=== PATIENT | male | born 1960 | race Caucasian/White ===

== ENCOUNTER 2023-12-03 14:24 | Outpatient (CLI) | payer MEDICARE, SELFPAY ==
--- NOTE | ~2023-12-03 | CT_ITS ---
EXAMINATION: CT abdomen pelvis wo/w con DATE: 12/03/2023 15:18 INDICATION: Gross hematuria TECHNIQUE: Computed tomography (CT) of the abdomen and pelvis was performed without intravenous contr ast. CT of the abdomen and pelvis was then performed with a total of 130 mL Omnipaque-350 intravenous contrast using a double-bolus technique for simultaneous opacification of the renal parenchyma and r enal collecting system. Automated exposure control and iterative reconstruction technique were employ ed. The dose-length product was 3442.21 mGy-cm. COMPARISON: None FINDINGS: Calcified left lower lobe nodule consistent with old granulomatous disease. Heart size is normal. Sma ll amount of atherosclerotic coronary artery calcification. Aortic valve calcification. No pericardia l or pleural effusion. Liver, gallbladder, spleen, pancreas and bilateral adrenal glands are normal. Kidneys enhance symmetrically with 2.3 cm cyst at the lower pole of the right kidney. Bilateral nonob structing nephrolithiasis with a 2-3 mm stone at a lower pole calyx of the left kidney and 1 mm stone at a lower pole calyx of the right kidney. No evident ureteral stones or hydronephrosis. 3.2 x 2.0 x 3.4 cm mass along the left posterior bladder wall positioned just anterior to the left ureteral vesi cular junction which is concerning for bladder cancer. Mild prostatomegaly measuring 4.2 x 3.4 cm. Johnathan wels including the appendix are normal. No free intraperitoneal gas or fluid. No pathologically enlar ged abdominal or pelvic lymphadenopathy. Low-density mass within the right inguinal canal likely a pl ug for a right inguinal hernia repair. Severe lower lumbar and moderate thoracic spondylosis. IMPRESSION: 1. 3.4 cm intraluminal mass along the left posterior bladder wall concerning for primary bladder canc er. Recommend cystoscopy for further evaluation. 2. Bilateral nonobstructing nephrolithiasis. 3. Prostatomegaly. Reviewed, dictated and finalized at location B. IMPRESSION: 1. 3.4 cm intraluminal mass along the left posterior bladder wall concerning fo r primary bladder cancer. Recommend cystoscopy for further evaluation. 2. Bilateral nonobstructing nephrolithiasis. 3. Prostatomegaly.
[2023-12-03 15:02] LABS: Estimated Glomerular Filt Rate > 60
== END 2023-12-03 14:25 | disposition home or self-care (01) ==
LOC: ANHIMG 14:28
PROVIDERS: Visit Provider Urology
DX: R31.0 Gross hematuria (principal); N20.0 Calculus of kidney
CPT/HCPCS: 74178; Q9967

== ENCOUNTER 2023-12-10 08:54 | Outpatient (CLI) | payer MEDICARE, SELFPAY ==
--- NOTE | 2023-12-10 09:01 | ECG_ITS ---
SEE SCANNED COPY FOR CONFIRMED REPORT MTDD
[2023-12-10 09:18] LABS: Basophils Absolute Auto 0.06 K/mm3 (0.00-0.10); Basophils Percent Auto 0.7 % (0.0-1.0); Eosinophils Percent Auto 2.2 % (1.0-6.0); Hemoglobin 14.9 g/dL (14.0-18.0); Immature Granulocyte Absolute 0.06 K/mm3 (0.00-0.00); Immature Granulocyte Percent A 0.7 % (0.0-0.0); Lymphocytes Absolute Auto 1.52 K/mm3 (1.10-4.50); Mean Corpuscular HGB Conc 33.1 g/dL (32-36); Mean Corpuscular Hemoglobin 28.9 pg (27.0-31.0); Mean Corpuscular Volume 87.2 fL (78.0-102.0); Mean Platelet Volume 8.9 fl (8.7-11.0); Monocytes Absolute Auto 0.56 K/mm3 (0.10-0.90); Monocytes Percent Auto 6.3 % (2.0-11.0); Neutrophils Absolute Auto 6.55 K/mm3 (1.70-7.20); Neutrophils Percent Auto 73.1 % (50.0-70.0); Platelet Count Result 204 K/mm3 (150-420); Red Blood Count 5.16 M/mm3 (4.70-6.10); Red Cell Distribution Width 12.8 % (11.6-14.4)
[2023-12-10 09:34] LABS: INR 0.9; Partial Thromboplastin Time 25.8 Sec (23.9-30.70); Prothrombin Time 10.3 Seconds (9.50-12.1)
[2023-12-10 09:37] LABS: Anion Gap 8 mmol/L (4-12); Blood Urea Nitrogen 18 mg/dL (7-18); Calcium 8.9 mg/dL (8.5-10.1); Carbon Dioxide 29 mmol/L (21-32); Chloride 103 mmol/L (98-108); Estimated Glomerular Filt Rate 57; Glucose 206 mg/dL (70-99); Osmolality Calculated 297 mOsm/kg (285-295); Potassium 4.2 mmol/L (3.5-5.1); Sodium 140 mmol/L (136-145)
== END 2023-12-10 08:55 | disposition home or self-care (01) ==
PROVIDERS: PCP Family Medicine; Visit Provider Urology
DX: Z87.891 Personal history of nicotine dependence (principal); N32.89 Other specified disorders of bladder; R31.0 Gross hematuria
CPT/HCPCS: 36415; 80048; 85025; 85610; 85730; 87086; 93005

== ENCOUNTER 2023-12-15 00:54 | Day surgery (SDC) | payer MEDICARE, SELFPAY ==
[2023-12-09 09:37] VITALS: BMI 35.9
--- NOTE | 2023-12-09 09:42 | PC.NURSE ---
Report to the Outpatient Waiting Room, entrance under the green pavilion located off [facility], at time 0830 on date 12/15/23. Planned Procedure Time: 1030. Time changes happen often and if your time is changed the preop area will call you the afternoon before. - You and your visitor will be asked to self-screen and do not enter if you have any COVID symptoms. - A mask is optional within the hospital at this time. Patients may have clear liquids (water, carbonated beverages, clear teas, apple juice) until 3 hours prior to surgery with a maximum of 20 ounces. - No food from midnight until time of surgery Take the following medications with a SIP of water the morning of surgery: NONE DO NOT STOP ANY OF YOUR OTHER PRESCRIPTION MEDICATIONS PRIOR TO SURGERY ?EXCEPT THE FOLLOWING Medications to discontinue per physician: N/A Date to take last dose: N/A Please no make-up, nail uzbek, hairspray, perfume, deodorant, or body powder the day of surgery. No jewelry (including any body piercings) or valuables the day of surgery, leave them at home. Please take a shower or bath the night before, or the morning of, surgery with an antibacterial soap. Wear comfortable, loose fitting clothing. - Jewelry must be removed prior to entering the operating room. Rings and piercings that are not removed may be cut off. - The hospital will not accept responsibility for valuables. - Please leave all valuables, including medications, at home the day of surgery. If you are going home after surgery, a licensed local owner operator truck driver must drive you home. - NO public transportation without another adult if you receive anesthesia. - We recommend that an adult stay with you for 24 hours following discharge. - We also recommend that you do not drive, make important decision, drink alcoholic beverages, or take any drugs that were not prescribed by your health care provider for at least 24 hours after your discharge time. Follow any additional instructions given to you from your surgeon. If you or anyone in your household have experienced Covid symptoms in the past week, please notify your surgeon or the nurse liaison at the phone number below for possible testing. Telephone instructions given to PT Mary Kay OROPEZA and asked if any additional questions and then verbalized understanding. Patient advised to call surgeon office or pre surgery nurse liaison [phone] if any additional questions.
--- NOTE | ~2023-12-15 | XR_ITS ---
EXAMINATION: XR retrograde pyelo w/stent BI DATE: 12/15/2023 10:55 CDT INDICATION: Hematuria TECHNIQUE: Multiple fluoroscopic images from bilateral retrograde pyelogram are submitted for review. 8 fluoroscopic images. 13 seconds of fluoroscopy.] FINDINGS: Renal collecting systems and ureters are normally opacified with contrast without evidence for filling defect or obstruction. No hydronephrosis. IMPRESSION: 1. Unremarkable bilateral retrograde pyelogram.. Correlate with real time procedural findings for de tails. Reviewed, dictated and finalized at location B. IMPRESSION: 1. Unremarkable bilateral retrograde pyelogram.. Correlate with real time proc edural findings for details.
--- NOTE | 2023-12-15 08:30 | WPDHPUPDATE1 ---
History and Physical Update Update Date/Time: 12/15/23 08:30 History and Physical has been reviewed, including an updated exam of the patient. There are NO changes in the patient's condition. Risks, benefits, and alternatives have been discussed and questions answered. Patient agrees to proceed with procedure. Proceed with cysto, possible bilateral retrograde pyelograms, transurethral resection of bladder tumor
[2023-12-15 08:45] VITALS: BP 157/86; PULSE 86; RESP 18; TEMP 36.5; O2SAT 99
[2023-12-15 09:19] LABS: Glucose Point of Care 135 mg/dl (65-105)
--- NOTE | 2023-12-15 09:42 | P.PNAN_ITS ---
Anes - Initial Pre Proc Eval Procedure: Operation Date: 12/15/23 10:30 Proposed Procedures p Trans Urethral Resection Bladder Tumor, - Bolivar Danielson MD s Cystoscopy, Possible Bilateral Retrograde Pyelogram - Bolivar Danielson MD Date/Time: 12/15/23 09:42 Surgeon: Bolivar Danielson MD Pre Op Diagnosis: bladder mass, gross hematuria Patient Data Age: 63 Gender: M Height: 1.88 m Weight: 130 kg Last Vital Signs Temp 97.7 F 12/15/23 08:45 Pulse 86 12/15/23 08:45 Resp 18 12/15/23 08:45 BP 157/86 H 12/15/23 08:45 Pulse Ox 99 12/15/23 08:45 O2 Del Method Room Air 12/15/23 08:45 Allergies Allergy/AdvReac Type Severity Reaction Status Date / Time No Known Allergies Allergy Verified 12/15/23 09:03 Home Medications Medication Instructions Recorded Confirmed Type amitriptyline 100 mg tablet 100 mg PO HS 12/09/23 12/15/23 History clonidine HCl 0.2 mg tablet 0.2 mg PO HS 12/09/23 12/15/23 History trazodone 50 mg tablet 50 mg PO HS 12/09/23 12/15/23 History Laboratory Tests 12/15/23 09:15 POC Capillary Glucose 135 H mg/dl (65-105) Patient hx anesthesia problems: none Family hx anesthesia problems: none Results Review: All pre-operative results and documents have been reviewed as part of the pre- operative evaluation. [facility] Social History Social History Smoking packs per day: 1 Smoking cigarettes per day: 20.0 Years smoked: 20 Smoking pack-years: 20.00 Smoking status: Former smoker Tobacco type: cigarettes Smoking end date: 08/24/13 Alcohol intake: never Substance use: current Substance use type: marijuana Living arrangements: with family Spiritual care concerns: No Anes - Eval Final PreProcedure Day of Procedure 12/15/23 09:42 Patient weight: obese Heart: regular rate and rhythm Lungs: clear to auscultation Airway: Mallampati scale class III Neurological: alert and oriented Last oral intake: >/= 8 hours ASA classification: III Emergent: no Anesthetic plan: proceed Anesthesia type and monitoring: general LMA and standard monitoring Results Review: All pre-operative results and documents have been reviewed as part of the pre- operative evaluation. Informed Consent: The patient's anesthetic plan and its attendant risks and benefits were discussed with the patient/family/POA. Questions were solicited and answers provided to the satisfaction of the patient/family/POA.
[2023-12-15] MEDS: ceFAZolin 3 GM/D5W 100 ML 100 ML IVPB (09:50)
[2023-12-15] MEDS: LIDOCAINE HCL 2% GEL UROJET 10 ML PKG MUCOUS MEM (10:11)
--- NOTE | 2023-12-15 10:44 | P.OP_ITS ---
Procedure Note - Detailed Date of Procedure 12/15/23 Pre-op Diagnosis bladder mass, gross hematuria Post-op Diagnosis Same Procedure Performed Urethral dilation, cystoscopy, transurethral resection large bladder tumor greater than 5 cm area, bilateral retrograde pyelograms complex Dela Cruz catheter placement Surgeon Bolivar Danielson MD Anesthesia General Description of Procedure Patient was taken to the operative suite correctly identified. Once anesthesia was obtained was placed in dorsal lithotomy position and prepped and draped usual sterile fashion. Nineteen Central African scope inserted into the urethra. The bladder is inspected its entirety. There are no urethral strictures but his meatus is a little tight. The prostate has some mild lateral lobe hypertrophy. The bladder itself has the tumor on the left floor extending to the lateral wall. The area with a basic stents about 5 cm. Both ureteral orifices are visualized at this time. A 24 Central African resectoscope sheath would not pass into the meatus. I then dilated the orifice up to 28 Central African. The 24 Central African sheath was then inserted. I resected the tumor down to the base. The base was sent as a separate specimen. Hemostasis was achieved using electrocautery. Bilateral pyelograms were then performed by placing a ureteral catheter into the orifice. There were no filling defects or hydronephrosis noted. Scope was removed. 2% viscous lidocaine was inserted into the urethra. Eighteen Central African [address] was placed with 10 cc in the balloon. Patient was taken recovery stable condition with CBI. That will be weaned to off in recovery room. He will be discharged home with a Dela Cruz catheter and have it removed on or Thursday if his urine is clear. This completes dictation. Please send a copy of op note to my office Estimated Blood Loss 15 Drains Yes Packing No Pathology Yes Complications No immediate complications Condition Stable Disposition PACU
[2023-12-15 10:50] VITALS: BP 124/76; PULSE 93; RESP 16; TEMP 36.6; O2SAT 98
[2023-12-15] MEDS: LACTATED RINGERS 1,000 ML 30 ML IV CONT (10:50)
[2023-12-15] MEDS: fentaNYL CITRATE INJ (*CRX) 100 MCG/2 ML VIAL 25 MCG IV PUSH ×4 (10:57→11:08)
[2023-12-15 11:05] VITALS: BP 125/69; PULSE 88; RESP 12; O2SAT 94
[2023-12-15 11:12] LABS: Glucose Point of Care 144 mg/dl (65-105)
[2023-12-15 11:20] VITALS: BP 126/72; PULSE 73; RESP 12; O2SAT 97
[2023-12-15 11:30] VITALS: BP 113/61; PULSE 85; RESP 16
[2023-12-15] MEDS: oxyCODONE HCL (*CRX) 5 MG TAB IR PO (11:33)
[2023-12-15 12:00] VITALS: BP 125/57; PULSE 73; RESP 16
== END 2023-12-15 12:26 | disposition home or self-care (01) ==
PROVIDERS: PCP Family Medicine; Visit Provider Urology
PROC: 0TBB8ZZ Excision of Bladder, Via Natural or Artificial Opening Endoscopic (ICD-10-PCS; CPT 52240; principal; 2023-12-15 10:30)
PROC: (CPT 52352; 2023-12-15 10:30)
DX: C67.8 Malignant neoplasm of overlapping sites of bladder (principal); Z87.891 Personal history of nicotine dependence; F12.90 Cannabis use, unspecified, uncomplicated; E66.9 Obesity, unspecified; Z68.36 Body mass index [BMI] 36.0-36.9, adult; Z79.899 Other long term (current) drug therapy
CPT/HCPCS: 52240; 74420; 82948; 88305; A9270; C1758; C1769; J0690; J1100; J2250; J2371; J2405; J2704; J3010; J7120

== ENCOUNTER 2023-12-21 18:15 | Emergency (ER) | payer MEDICARE, SELFPAY ==
[2023-12-21 18:15] VITALS: BP 160/97; PULSE 96; RESP 22; TEMP 35.6; O2SAT 100
--- NOTE | 2023-12-21 18:31 | ED.ABDPAIN ---
HPI - Abdominal Pain General Chief Complaint: Abdominal Pain Stated Complaint: constipation following surgery Time Seen by Provider: 12/21/23 18:30 History of Present Illness HPI narrative: Pt says he has not been able to move bowels for several days. Pt says it feels like the stool is right at his rectum and needs to come out and is requesting an enema. Pt had bladder surgery last week by Dr Danielson. Pt is able to void but it is not coming out quickly. Related Data Home Medications Medication Instructions Recorded Confirmed amitriptyline 100 mg tablet 100 mg PO HS 12/09/23 12/21/23 clonidine HCl 0.2 mg tablet 0.2 mg PO HS 12/09/23 12/21/23 trazodone 50 mg tablet 50 mg PO HS 12/09/23 12/21/23 Allergies Allergy/AdvReac Type Severity Reaction Status Date / Time No Known Allergies Allergy Verified 12/15/23 09:03 Review of Systems Review of Systems: All systems reviewed & are unremarkable except as noted in HPI and below PMFSH Social History Social History Smoking packs per day: 1 Smoking cigarettes per day: 20.0 Years smoked: 20 Smoking pack-years: 20.00 Smoking status: Former smoker Tobacco type: cigarettes Smoking end date: 08/24/13 Alcohol intake: never Substance use: current Substance use type: marijuana Living arrangements: with family Spiritual care concerns: No Exam Const: General: no acute distress (uncomfortable sitin on edge of bed) and diaphoretic Orientation/consciousness: patient oriented x3 Limitations: no limitations Resp: Effort & Inspection: normal respiratory effort Auscultation: clear to auscultation bilaterally Cardio: Rate: regular rate Rhythm: regular rhythm GI: GI Palp: Yes Soft to palpation and Yes Tenderness to palpation present (GI) (mild diffuse tenderness) Auscultation: normal bowel sounds Skin: General skin exam: normal color Rashes: no rashes Neuro: General: patient oriented x3, moves all extremities, no meningeal signs and no focal motor deficits Speech: normal speech Extrem: General: normal to inspection and no clubbing, cyanosis or edema Psych: Mental Status: mental status grossly normal Affect: normal affect Attitude: cooperative Course Vital Signs Vital signs: Vital Signs Temperature 96.1 F L 12/21/23 18:15 Pulse Rate 96 12/21/23 18:15 Respiratory Rate 22 H 12/21/23 18:15 Blood Pressure 160/97 H 12/21/23 18:15 Pulse Oximetry 100 12/21/23 18:15 Oxygen Delivery Room Air 12/21/23 18:15 Temperature 96.2 F L 12/21/23 19:57 Pulse Rate 107 H 12/21/23 19:57 Respiratory Rate 20 12/21/23 19:57 Blood Pressure 138/80 12/21/23 19:57 Pulse Oximetry 99 12/21/23 19:57 Oxygen Delivery Room Air 12/21/23 19:57 MDM - Abdominal Pain MDM Narrative Medical decision making narrative: Pt presents with constipation for last two days but really since urologic surgery last week. Will try soap suds enema to see if we can get some relief. Pt had large Bm and felt much better. wants to go home. Discharge Plan Discharge Clinical Impression: Constipation Patient Disposition: Home, Self-Care Condition: Improved Instructions: Antibiotic Form, Constipation (DC) Prescriptions: No Action trazodone 50 mg tablet 50 mg PO HS clonidine HCl 0.2 mg tablet 0.2 mg PO HS amitriptyline 100 mg tablet 100 mg PO HS Follow-up/Referrals: Ricco,MD Alber [Primary Care Provider] -
--- NOTE | 2023-12-21 18:48 | PC.NURSE ---
patient laying on left side. encouraged patient to hold soap suds enema in as long as possible. patient has bedside commode next to him. cleaning wipes and towels given. is at the bedside
--- NOTE | 2023-12-21 18:55 | PC.NURSE ---
patient continues to lay on left side. holding in soap suds enema at this time.
--- NOTE | 2023-12-21 19:02 | PC.NURSE ---
report given to jordan guardado
--- NOTE | 2023-12-21 19:04 | PC.NURSE ---
patient is up to bedside commode. reports that he is having results from the soap suds enema. at his side.
--- NOTE | 2023-12-21 19:27 | PC.NURSE ---
DR. SANZ AT BEDSIDE, STATES PATIENT REPORTS HE IS FEELING MUCH BETTER AFTER SUCCESSFUL BM.
[2023-12-21 19:57] VITALS: BP 138/80; PULSE 107; RESP 20; TEMP 35.7; O2SAT 99
== END 2023-12-21 19:58 | disposition home or self-care (01) ==
PROVIDERS: Emergency Provider Emergency Medicine; PCP Family Medicine
DX: K59.00 Constipation, unspecified (principal); F17.210 Nicotine dependence, cigarettes, uncomplicated
CPT/HCPCS: 99282

== ENCOUNTER 2024-07-06 08:25 | Outpatient (CLI) | payer MEDICARE, SELFPAY ==
[2024-07-06 08:58] LABS: Basophils Absolute Auto 0.03 K/mm3 (0.00-0.10); Basophils Percent Auto 0.4 % (0.0-1.0); Eosinophils Absolute Auto 0.12 K/mm3 (0.02-0.50); Eosinophils Percent Auto 1.6 % (1.0-6.0); Hematocrit 45.7 % (40.0-54.0); Hemoglobin 15.5 g/dL (14.0-18.0); Immature Granulocyte Absolute 0.04 K/mm3 (0.00-0.00); Immature Granulocyte Percent A 0.5 % (0.0-0.0); Lymphocytes Absolute Auto 1.66 K/mm3 (1.10-4.50); Lymphocytes Percent Auto 22.6 % (18.0-42.0); Mean Corpuscular HGB Conc 33.9 g/dL (32-36); Mean Corpuscular Hemoglobin 29.5 pg (27.0-31.0); Mean Corpuscular Volume 86.9 fL (78.0-102.0); Monocytes Absolute Auto 0.56 K/mm3 (0.10-0.90); Monocytes Percent Auto 7.6 % (2.0-11.0); Neutrophils Absolute Auto 4.93 K/mm3 (1.70-7.20); Neutrophils Percent Auto 67.3 % (50.0-70.0); Platelet Count Result 200 K/mm3 (150-420); Red Blood Count 5.26 M/mm3 (4.70-6.10); Red Cell Distribution Width 12.6 % (11.6-14.4); White Blood Count 7.3 K/mm3 (4.8-10.8)
[2024-07-06 09:13] LABS: Partial Thromboplastin Time 26.4 Sec (23.9-30.70); Prothrombin Time 10.5 Seconds (9.50-12.1)
[2024-07-06 09:46] LABS: Anion Gap 9 mmol/L (4-12); Blood Urea Nitrogen 17 mg/dL (7-18); Calcium 9.9 mg/dL (8.5-10.1); Carbon Dioxide 28 mmol/L (21-32); Chloride 101 mmol/L (98-108); Estimated Glomerular Filt Rate > 60; Glucose 134 mg/dL (70-99); Osmolality Calculated 289 mOsm/kg (285-295); Potassium 4.5 mmol/L (3.5-5.1); Sodium 138 mmol/L (136-145)
== END 2024-07-06 08:26 | disposition home or self-care (01) ==
LOC: CHSLAB 08:26
PROVIDERS: PCP Family Medicine; Visit Provider Urology
DX: D49.4 Neoplasm of unspecified behavior of bladder (principal); R10.9 Unspecified abdominal pain
CPT/HCPCS: 36415; 80048; 85025; 85610; 85730

== ENCOUNTER 2024-07-12 00:29 | Day surgery (SDC) | payer MEDICARE, SELFPAY ==
[2024-07-05 15:29] VITALS: BMI 37.3
--- NOTE | 2024-07-05 15:42 | PC.NURSE ---
Report to the Outpatient Waiting Room, entrance under the green pavilion located off [facility], at time __6:45AM on date ___07/12/24____. Planned Procedure Time: ___8:45AM .? Time changes happen often and if your time is changed the preop area will call you the afternoon before. - You and your visitor will be asked to self-screen and do not enter if you have any COVID symptoms. Please call surgeon if you need to reschedule. - A mask is optional within the hospital at this time. Patients may have clear liquids (water, carbonated beverages, clear teas, apple juice) until 3 hours prior to surgery with a maximum of 20 ounces. - No food from midnight until time of surgery and no smoking - Infants may have breast milk until 4 hours before surgery, formula 6 hours prior to surgery. - Children will be allowed to drink immediately following surgery.? If applicable, please bring a bottle or sippy cup to assist with drinking. Juice, water, soda, and popsicles are readily available.? For infants on formula, please bring formula the day of surgery.? Pacifiers are allowed. Take only the following medications with a SIP of water on the morning of surgery: NONE DO NOT STOP ANY OF YOUR OTHER PRESCRIPTION MEDICATIONS PRIOR TO SURGERY EXCEPT THE FOLLOWING Medications to discontinue per physician NONE Date to take last dose Please no make-up, nail south korean, hairspray, perfume, deodorant, or body powder the day of surgery.? No jewelry (including any body piercings) or valuables the day of surgery, leave them at home.? Please take a shower or bath the night before, or the morning of, surgery with an antibacterial soap.? Wear comfortable, loose fitting clothing.? Children are encouraged to wear pajamas. - Jewelry must be removed prior to entering the operating room.? Rings and piercings that are not removed may be cut off. - The hospital will not accept responsibility for valuables.? - Please leave all valuables, including medications, at home the day of surgery. If you are going home after surgery, a licensed transfer driver must drive you home.? - NO public transportation without another adult if you receive anesthesia. - We recommend that an adult stay with you for 24 hours following discharge. - We also recommend that you do not drive, make important decision, drink alcoholic beverages, or take any drugs that were not prescribed by your health care provider for at least 24 hours after your discharge time. For Pediatric surgeries, we recommend two adults accompany the child home. Follow any additional instructions given to you from your surgeon. Telephone instructions given to ___PATIENT and asked if any additional questions and then verbalized understanding. Patient advised to call surgeon office or pre surgery nurse liaison [phone] if any additional questions.
[2024-07-12] VITALS (7 sets, daily range): BP systolic 105–146; BP diastolic 67–83; PULSE 69–83; RESP 14–20; TEMP 36.1–36.6; O2SAT 97–100
--- NOTE | 2024-07-12 07:34 | WPDHPUPDATE1 ---
History and Physical Update Update Date/Time: 07/12/24 07:34 History and Physical has been reviewed, including an updated exam of the patient. There are NO changes in the patient's condition. Risks, benefits, and alternatives have been discussed and questions answered. Patient agrees to proceed with procedure.
[2024-07-12] MEDS: LACTATED RINGERS 1,000 ML 30 ML IV CONT (07:45)
--- NOTE | 2024-07-12 08:24 | WPDANESEPPF ---
Anes - Initial Pre Proc Eval Procedure: Operation Date: 07/12/24 08:45 Proposed Procedures p Cystoscopy, Possible Transurethral Resection Bladder Tumor - Bolivar Danielson MD Date/Time: 07/12/24 08:24 Surgeon: Bolivar Danielson MD Pre Op Diagnosis: bladder cancer Patient Data Age: 64 Gender: M Height: 1.88 m Weight: 132 kg Allergies Allergy/AdvReac Type Severity Reaction Status Date / Time No Known Allergies Allergy Verified 07/12/24 07:47 Home Medications Medication Instructions Recorded Confirmed Type amitriptyline 100 mg tablet 100 mg PO HS 12/09/23 07/12/24 History clonidine HCl 0.2 mg tablet 0.2 mg PO HS 12/09/23 07/12/24 History trazodone 50 mg tablet 50 mg PO HS 12/09/23 07/12/24 History atorvastatin 20 mg tablet 20 mg PO QAM 07/05/24 07/12/24 History Patient hx anesthesia problems: none Family hx anesthesia problems: none Results Review: All pre-operative results and documents have been reviewed as part of the pre-operative evaluation. PENDING SALE TO [facility] Social History Social History Smoking packs per day: 1 Smoking cigarettes per day: 20.0 Years smoked: 25 Smoking pack-years: 25.00 Smoking status: Former smoker Tobacco type: cigarettes Smoking end date: 02/21/14 Alcohol intake: never Substance use: current Substance use type: marijuana Living arrangements: with family Additional living arrangements comments: Spiritual care concerns: No Anes - Eval Final PreProcedure Day of Procedure 07/12/24 08:24 Patient weight: obese Heart: regular rate and rhythm Lungs: clear to auscultation Airway: Mallampati scale and special considerations (Missing several upper teeth, one broken, none loose per pt. ) Neurological: alert and oriented Last oral intake: >/= 8 hours ASA classification: III Emergent: no Anesthetic plan: proceed Anesthesia type and monitoring: general LMA and standard monitoring Results Review: All pre-operative results and documents have been reviewed as part of the pre-operative evaluation. HTN, hyperlipidemia, pt denies BRENDA. Informed Consent: The patient's anesthetic plan and its attendant risks and benefits were discussed with the patient/family/POA. Questions were solicited and answers provided to the satisfaction of the patient/family/POA.
[2024-07-12] MEDS: ceFAZolin 2 GM/D5W 50 ML 2 GM/50 ML BAG IVPB (08:29)
[2024-07-12] MEDS: LIDOCAINE HCL 2% GEL UROJET 10 ML PKG MUCOUS MEM (08:29)
[2024-07-12] MEDS: ceFAZolin SODIUM 1 GM VIAL IV PUSH (08:45)
--- NOTE | 2024-07-12 08:52 | W.PM.PROC2 ---
Procedure Note - Detailed Date of Procedure 07/12/24 Pre-op Diagnosis bladder cancer Post-op Diagnosis Same (No recurrence) Procedure Performed Cystoscopy Surgeon Bolivar Danielson MD Anesthesia General Description of Procedure Patient was taken the operative suite correctly identified. Once anesthesia was obtained was placed in dorsal lithotomy position prepped draped usual sterile fashion. Nineteen Brazilian scope was inserted in the bladder on direct vision. There were no urethral strictures. Prostate nonobstructive. Upon entering the bladder the bladder was inspected in its entirety. Prior resected site along the left lateral wall was visualized and healed nicely. The entire bladder was inspected with a 30 degree lens as well as a 70 degree lens. No tumors were noted. Bladder was drained. 2% viscous lidocaine was inserted into the urethra. Patient is taken recovery stable condition. Patient is very anxious will not allow was to do a cystoscopy in the office. Will stretch him out to a 6 month cysto in the OR. This completes dictation. Please send a copy of op note to my office Drains No Packing No Pathology None sent Complications No immediate complications Condition Stable Disposition PACU
== END 2024-07-12 10:05 | disposition home or self-care (01) ==
PROVIDERS: PCP Family Medicine; Visit Provider Urology
PROC: 0TBB8ZZ Excision of Bladder, Via Natural or Artificial Opening Endoscopic (ICD-10-PCS; CPT 52000; principal; 2024-07-12 08:45)
DX: Z08 Encounter for follow-up examination after completed treatment for malignant neoplasm (principal); E66.9 Obesity, unspecified; Z68.38 Body mass index [BMI] 38.0-38.9, adult; Z98.890 Other specified postprocedural states; Z98.1 Arthrodesis status; Z87.891 Personal history of nicotine dependence; Z85.51 Personal history of malignant neoplasm of bladder
CPT/HCPCS: 52000; J0690; J1100; J2003; J2250; J2405; J2704; J3010; J7120

== ENCOUNTER 2024-10-03 08:36 | Observation (INO) | payer MEDICARE, SELFPAY ==
[2024-10-03] VITALS (49 sets, daily range): BP systolic 115–137; BP diastolic 59–82; PULSE 93–104; RESP 18–20; TEMP 35.6–36.2; O2SAT 91–100
--- NOTE | ~2024-10-03 | XR_ITS ---
Supine and upright views of the abdomen Clinical history: Possible small bowel follow-through COMPARISON: 10/04/2024 Findings: Oral contrast is present in large bowel. Multiple prominently distended small bowel loops a re present. No definite free air seen. No abnormal mass lesion or calcification is seen. Osseous stru ctures are intact. Impression: Small bowel obstruction versus adynamic ileus. Oral contrast is within nondistended large bowel. Reviewed, dictated and finalized at location M. MOBILE SERVICE STATION MANAGER Impression: Small bowel obstruction versus adynamic ileus. Oral contrast is within nondiste nded large bowel.
--- NOTE | ~2024-10-03 | XR_ITS ---
EXAMINATION: XR abdomen/kub 1V DATE: 10/04/2024 15:53 INDICATION: Adynamic ileus. TECHNIQUE: A supine view of the abdomen on 5 radiographs was obtained. COMPARISON: CT abdomen and pelvis 10/03/2024 FINDINGS: There are dilated loops of small bowel. There is oral contrast in the colon, which is tanika l in caliber. IMPRESSION: 1. Dilated small bowel, consistent with partial small bowel obstruction versus adynamic ileus. Reviewed, dictated and finalized at location A. SPLANT IMMUNOLOGIST
--- NOTE | ~2024-10-03 | XR_ITS ---
EXAMINATION: XR small bowel follow through DATE: 10/04/2024 11:00 INDICATION: Improving partial bowel obstruction TECHNIQUE: Test Preparation Tutor radiograph(s) of the abdomen was/were obtained. Oral contrast was administered, and sequential radiographs of the abdomen were obtained until oral contrast was noted to be in the proxi mal colon. COMPARISON: None. FINDINGS: Transit time from the stomach to proximal colon was approximately 3 hours. Multiple mildly dilated lo ops of small bowel with normal mucosal fold pattern throughout. The visualized contrast opacified por tion of the proximal colon appears normal.. IMPRESSION: 1. Multiple mildly dilated loops of small bowel but with contrast progressing into the colon within 3 hours consistent with partial small bowel obstruction versus ileus. Reviewed, dictated and finalized at location A. PAN OPERATOR IMPRESSION: 1. Multiple mildly dilated loops of small bowel but with contrast progressing i nto the colon within 3 hours consistent with partial small bowel obstruction ve rsus ileus.
--- NOTE | ~2024-10-03 | CT_ITS ---
Non-contrast CT scan of the Abdomen and Pelvis Clinical indication: Epigastric pain Technique: 2.5 mm axial scans were obtained through the abdomen and pelvis without intravenous or or al contrast. Dose reduction technique was used on this scan by utilizing automated exposure control a nd iterative reconstruction technique. The dose-length product (DLP) was 1563.92 mGy-cm. COMPARISON: 12/03/2023 Findings: Images through the lung bases reveal no abnormalities. 3 mm nonobstructing left renal stone present. No right renal stone. No ureteral stone or hydronephros is on either side. The liver, spleen, pancreas, gallbladder, and adrenals appear normal. There are atherosclerotic calci fications of the aorta. There are multiple dilated proximal small bowel, with relative transition point in the posterior mid abdomen (axial image 123), compatible with early/partial small bowel obstruction. Images through the pelvis were performed. There is no evidence of ascites or lymphadenopathy. Urinary bladder unremarkable. No pelvic mass seen. Impression: Findings compatible with early/partial small bowel obstruction, as detailed above. 3 mm nonobstructing left renal stone. Reviewed, dictated and finalized at location M. L SPRAYER MACHINED PARTS Impression: Findings compatible with early/partial small bowel obstruction, as detailed abo ve. 3 mm nonobstructing left renal stone.
--- NOTE | 2024-10-03 08:37 | ED_ITS ---
HPI - General Adult General Chief complaint: Upper Respiratory Infection Stated complaint: uri Time Seen by Provider: 10/03/24 08:37 Source: patient Mode of arrival: ambulatory Limitations: no limitations History of Present Illness HPI narrative: 64 years old white male came to the ED by private car complaining of dry cough for the last 6 days got worse in the last 2 days, Epigastric pain with coughing. He denies any fever, chills, nausea, vomiting, diarrhea, constipation. Patient been taking Tylenol, ibuprofen without improvement, history of diabetes, he does not smoke or drink or use drugs. He denies history of abdominal surgery. Related Data Home Medications ?Medication ?Instructions ?Recorded ?Confirmed ?Last Taken ?Type amitriptyline 100 mg tablet 100 mg PO HS 12/09/23 07/12/24 07/11/24 History clonidine HCl 0.2 mg tablet 0.2 mg PO HS 12/09/23 07/12/24 07/11/24 History trazodone 50 mg tablet 50 mg PO HS 12/09/23 07/12/24 07/11/24 History atorvastatin 20 mg tablet 20 mg PO QA 07/05/24 07/12/24 07/11/24 History Allergies Allergy/AdvReac Type Severity Reaction Status Date / Time No Known Allergies Allergy Verified 10/03/24 08:47 Review of Systems 2 Review of Systems: All systems reviewed & are unremarkable except as noted in HPI and below PMFSH Social History Social History Smoking packs per day: 1 Smoking cigarettes per day: 20.0 Years smoked: 25 Smoking pack-years: 25.00 Smoking status: Former smoker Tobacco type: cigarettes Smoking end date: 02/21/14 Alcohol intake: never Substance use: current Substance use type: marijuana Living arrangements: with family Additional living arrangements comments: Spiritual care concerns: No Exam 2 Narrative: General appearance: Well-developed, well-nourished Skin: Normal color Head: Normocephalic, nontraumatic Eyes: Clear conjunctiva ENT: Oropharynx normal, ears normal, nose normal Neck: Supple, nontender Chest and respiratory: Airway patent, no respiratory distress, no accessory muscle use Heart: Regular rate/rhythm Abdomen: Soft, Epigastric tenderness, no organomegaly, quiet bowel sounds Vascular: Normal peripheral pulses, normal capillary refill. Musculoskeletal: Normal range of motion, nontender back Neurologic: Alert and oriented ?3, HVAC TECHNICIAN RESIDENTIAL is normal as tested, no gross motor deficit Course Consultations Consultation #1: Dr. Lora at shift change Date: 10/03/24 Time: 19:00 Vital Signs Vital signs: Vital Signs Temperature 36.2 C L 10/03/24 08:43 Pulse Rate 104 H 10/03/24 08:43 Respiratory Rate 20 10/03/24 08:43 Blood Pressure 130/70 10/03/24 08:43 Pulse Oximetry 97 10/03/24 08:43 Oxygen Delivery Room Air 10/03/24 08:43 Temperature 36.2 C L 10/03/24 08:43 Pulse Rate 97 10/03/24 15:15 Respiratory Rate 20 10/03/24 08:43 Blood Pressure 137/79 10/03/24 15:01 Pulse Oximetry 93 10/03/24 15:30 Oxygen Delivery Room Air 10/03/24 15:01 Medical Decision Making [facility] Narrative Medical decision making narrative: patient presents with dry cough and epigastric pain Vital signs showing pulse of 104 otherwise within normal limit Physical examination showing large abdomen, tender epigastric area, Differential diagnosis include upper respiratory viral infection, pneumonia, coronary artery disease, pancreatitis, cholecystitis, constipation, diverticulitis, colitis, urinary tract infection. Blood workup today includes CBC, CMP, lipase, troponin showed no significant abnormalities Respiratory panel came back positive for influenza A Urinalysis showed no evidence of infection CT abdomen and pelvis without contrast showed partial small-bowel obstruction EKG on arrival to the ED showed supraventricular rhythm at 91 beats per minute, right axis deviation, right bundle-branch block, anterior myocardial infarction of indeterminate age, abnormal EKG Diagnosis influenza, partial small-bowel obstruction Disposition on the waiting list ,[facility] Differential Diagnosis Differential Diagnosis: as above Vital Signs Vital Signs: Vital Signs Temperature 36.2 C L 10/03/24 08:43 Pulse Rate 104 H 10/03/24 08:43 Respiratory Rate 20 10/03/24 08:43 Blood Pressure 130/70 10/03/24 08:43 Pulse Oximetry 97 10/03/24 08:43 Oxygen Delivery Room Air 10/03/24 08:43 Temperature 36.2 C L 10/03/24 08:43 Pulse Rate 97 10/03/24 15:15 Respiratory Rate 20 10/03/24 08:43 Blood Pressure 137/79 10/03/24 15:01 Pulse Oximetry 93 10/03/24 15:30 Oxygen Delivery Room Air 10/03/24 15:01 Lab Data 10/03/24 09:12 10/03/24 09:12 Labs: Lab Results 10/03/24 10/03/24 10/03/24 Range/Units 08:49 09:12 11:13 WBC 7.3 (4.8-10.8) K/mm3 RBC 5.11 (4.70-6.10) M/mm3 Hgb 14.6 (14.0-18.0) g/dL Hct 45.1 (40.0-54.0) % MCV 88.3 (78.0-102.0) fL MCH 28.6 (27.0-31.0) pg MCHC 32.4 (32-36) g/dL RDW 13.1 (11.6-14.4) % Plt Count 182 (150-420) K/mm3 MPV 9.0 (8.7-11.0) fl Immature Gran % (Auto) 0.4 H (0.0-0.0) % Neut % (Auto) 83.2 H (50.0-70.0) % Lymph % (Auto) 6.3 L (18.0-42.0) % [place] % (Auto) 8.4 (2.0-11.0) % Eos % (Auto) 1.6 (1.0-6.0) % Baso % (Auto) 0.1 (0.0-1.0) % Lymph # (Auto) 0.46 L (1.10-4.50) K/mm3 [place] # (Auto) 0.61 (0.10-0.90) K/mm3 Eos # (Auto) 0.12 (0.02-0.50) K/mm3 Baso # (Auto) 0.01 (0.00-0.10) K/mm3 Abs Immat Gran (auto) 0.03 H (0.00-0.00) K/mm3 Absolute Neuts (auto) 6.07 (1.70-7.20) K/mm3 Absolute Nucleated RBC 0.00 (0.00-0.00) K/mm3 Nucleated RBC % 0.0 (0-0.0) % Sodium 132 L (136-145) mmol/L Potassium 3.6 (3.5-5.1) mmol/L Chloride 97 L (98-108) mmol/L Carbon Dioxide 27 (21-32) mmol/L Anion Gap 8 (4-12) mmol/L BUN 15 (7-18) mg/dL Creatinine 1.20 (0.70-1.30) mg/dL Estim Creat Clear Calc 83 ml/min Estimated GFR > 60 (59 - ) Glucose 180 H (70-99) mg/dL Calculated Osmolality 279 L (285-295) mOsm/kg Lactic Acid 1.7 (0.4-2.0) mmol/L Calcium 8.3 L (8.5-10.1) mg/dL Total Bilirubin 0.6 (0.00-1.00) mg/dL AST 14 L (15-37) U/L ALT 33 (16-63) U/L Alkaline Phosphatase 65 (46-116) U/L Troponin I 6.2 (0.00-60.4) ng/L Total Protein 6.6 (6.4-8.2) g/dL Albumin 3.4 (3.4-5.0) g/dL Lipase 18 (16-77) U/L Urine Color Yellow (Yellow) Urine Appearance Clear (Clear) Urine pH 5.5 (5.0-8.0) Ur Specific [place] 1.025 H (1.010-1.020) Urine Protein Trace H (Negative) Urine Glucose (UA) Trace H (Negative) Urine Ketones 1+ H (Negative) Ur Blood (Man) Negative (Negative) Urine Nitrate Negative (Negative) Urine Bilirubin Negative (Negative) Urine Urobilinogen 0.2 (0.2-1.0) mg/dL Leukocyte Esterase Rfl Negative (Negative) DAPHNE/UL Urine RBC None seen (0-2) /hpf Urine WBC None seen (0-3) /hpf Ur Squamous Epith Cells Few (Few) /hpf Urine Bacteria 1+ H (None) /hpf Urine Mucus Few H /lpf Influenza A (RT-PCR) Positive A (Negative) Influenza B (RT-PCR) Negative (Negative) RSV (RT-PCR) Negative (Negative) SARS-CoV-2 RNA (RT-PCR) Negative (Negative) Imaging Data Radiologist's impression: Impressions Abdomen/Pelvis CT 10/03/24 09:47 Impression: Findings compatible with early/partial small bowel obstruction, as detailed above. 3 mm nonobstructing left renal stone. ECG Data EKG #1: Attestation: I personally reviewed and interpreted this ECG as follows: Interpretation: supraventricular rhythm at 91 beats per minute, right axis deviation, incomplete right bundle-branch block, anterior infarction, age indeterminate, borderline ST T-wave abnormality, abnormal EKG Critical Care Time Critical Care Time Critical Care Time: Yes Total Critical Care Time: 3 Discharge Plan Discharge Clinical Impression: Influenza, Partial small bowel obstruction Patient Disposition: Acute Care [facility] Condition: Stable Additional Instructions: Patient Language: Kazakh Prescriptions: No Action trazodone 50 mg tablet 50 mg PO HS clonidine HCl 0.2 mg tablet 0.2 mg PO HS amitriptyline 100 mg tablet 100 mg PO HS atorvastatin 20 mg tablet 20 mg PO QAM Follow-up/Referrals: Ricco,MD Alber [Primary Care Provider] -
--- OUTSIDE RECORDS SUMMARY | 2024-10-03 08:45 | XMS_ITS | Encounter Summary ---
Author Organization [facility] Address [facility] [place] [address] Care Team Providers Care Vegetables Cook Name Role Phone Alber Chacko MD Primary Care Provider Encounter Details Date Type Department Care Team (Late st Contact Info) Description 01/29/2019 Abstract SFL CONVERSION [address] [place] [address] , Generic Conversion, Social History Tobacco Use Types Packs/Day Years Used Date Smoking Tobacco: Never Assessed Sex and Gender Information Value Date Recorded Sex Assigned at Not on file Legal Sex Male 7:58 PM CDT Gender Identity Not on file Sexual Orientation Not on file documented as of this encounter Plan of Treatment Not on file documented as of this encounter Visit Diagnoses Not on filedocumented in this encounter Care Teams Vegetables Cook Relationship Specialty Start Date End Date Alber Chacko MD [address] [place] [id number] PCP - General FAMILY PRACTICE 11/04/23 documented as of this encounter
--- OUTSIDE RECORDS SUMMARY | 2024-10-03 08:45 | XMS_ITS | Clinical Summary ---
Author Organization [facility] Address [facility] [place] [address] Care Team Providers Care Release Specialist Name Role Phone Alber Chacko MD Primary Care Provider Social History Tobacco Use Types Packs/Day Years Used Date Smoking Tobacco: Never Assessed Sex and Gender Information Value Date Recorded Sex Assigned at Not on file Legal Sex Male 7:58 PM CDT Gender Identity Not on file Sexual Orientation Not on file Last Filed Vital Signs Vital Sign Reading Time Taken Comments Blood Pressure - - Pulse - - Temperature - - Respiratory Rate - - Oxygen Saturation - - Inhaled Oxygen Concentration - - Weight 104.3 kg (230 lb) 12/24/2018 8:57 AM CDT Height 190.5 cm (6' 3 ) 12/24/2018 8:57 AM CDT Body Mass Index 28.75 12/24/2018 8:57 AM CDT Plan of Treatment Health Maintenance Due Date Last Done Comments Colorectal Cancer Screening Colonoscopy (10 Years) 1962 Annual Physical 1965 Hepatitis C 02/12/1980 DTaP, Tdap and Td Vaccines ( 1 - Tdap) 1981 Zoster Vaccines (1 of 2) 02/12/2012 COVID-19 Vaccine (3 - 2023-2 5 season) 2024 01/29/2021, 01/08/2021 Influenza Adult (#1) 2024 12/20/2018, 05/27/2017 RSV Immunization or 60+ Years (1 - 1-dose 75+ series) 2037 Meningococcal B Vaccine Aged Out No l onger eligible based on patient's age to complete this topic Meningococcal Vaccine Aged Out No bharat adria eligible based on patient's age to complete this topic Pneumococcal Vaccine: Pediatrics (0 to 5 Years) and At-Risk Patients (6 to 64 Years) Aged Out No longer eligible b ased on patient's age to complete this topic RSV Immunizations Under 20 Months Aged Out No longer eligible b ased on patient's age to complete this topic Insurance MEDICARE Care Teams Release Specialist Relationship Specialty Start Date End Date Alber Chacko MD [address] [place] [phone] PCP - General FAMILY PRACTICE 11/04/23
--- NOTE | 2024-10-03 08:53 | ECG_ITS ---
Test Date: 2024-10-03 09:19:01 Measurements Intervals [place] Rate: 91 P: 0 CA: 0 QRS: 114 QRSD: 110 T: -87 QT: 359 QTc: 442 Interpretive Statements SUPRAVENTRICULAR RHYTHM RIGHT AXIS DEVIATION INCOMPLETE RIGHT BUNDLE BRANCH BLOCK CONSIDER ANTERIOR INFARCT, AGE INDETERMINATE BORDERLINE ST-T WAVE ABNORMALITY- INF/LAT LEADS BASELINE ARTIFACT- I, II, III, AVR, AVL, AVF, V1 ABNORMAL ECG No previous ECG available for comparison Electronically Signed On 10-03-2024 09:48:52 DELICATESSEN STORE MANAGER by Rakesh Sorenson D.O.
[2024-10-03] MEDS: SODIUM CHLORIDE 0.9% IV 1,000 ML 999 ML IV CONT (09:01)
[2024-10-03 09:20] LABS: Basophils Absolute Auto 0.01 K/mm3 (0.00-0.10); Basophils Percent Auto 0.1 % (0.0-1.0); Eosinophils Absolute Auto 0.12 K/mm3 (0.02-0.50); Eosinophils Percent Auto 1.6 % (1.0-6.0); Hematocrit 45.1 % (40.0-54.0); Hemoglobin 14.6 g/dL (14.0-18.0); Immature Granulocyte Absolute 0.03 K/mm3 (0.00-0.00); Immature Granulocyte Percent A 0.4 % (0.0-0.0); Lymphocytes Absolute Auto 0.46 K/mm3 (1.10-4.50); Lymphocytes Percent Auto 6.3 % (18.0-42.0); Mean Corpuscular HGB Conc 32.4 g/dL (32-36); Mean Corpuscular Hemoglobin 28.6 pg (27.0-31.0); Mean Corpuscular Volume 88.3 fL (78.0-102.0); Monocytes Absolute Auto 0.61 K/mm3 (0.10-0.90); Monocytes Percent Auto 8.4 % (2.0-11.0); Neutrophils Absolute Auto 6.07 K/mm3 (1.70-7.20); Neutrophils Percent Auto 83.2 % (50.0-70.0); Platelet Count Result 182 K/mm3 (150-420); Red Blood Count 5.11 M/mm3 (4.70-6.10); Red Cell Distribution Width 13.1 % (11.6-14.4); White Blood Count 7.3 K/mm3 (4.8-10.8)
[2024-10-03 09:30] LABS: SARS-CoV-2 RNA PCR Negative (Negative)
--- OUTSIDE RECORDS SUMMARY | 2024-10-03 09:30 | XMS_ITS | Clinical Summary ---
Author Organization [facility] Address [facility] [place] [address] Care Team Providers Care Fusion Juncture Grinder Name Role Phone Alber Chacko MD Primary Care Provider [phone] Social History Tobacco Use Types Packs/Day Years [...] complete this topic Insurance MEDICARE Care Teams Fusion Juncture Grinder Relationship Specialty Start Date End Date Alber Chacko MD [address] [place] [phone] PCP - General FAMILY PRACTICE 11/04/23
--- OUTSIDE RECORDS SUMMARY | 2024-10-03 09:30 | XMS_ITS | Encounter Summary ---
Author Organization [facility] Address [facility] [place] [address] Care Team Providers Care Business Analytics Analyst Name Role Phone Alber Chacko MD Primary Care Provider Encounter Details Date Type Department Care Team (Late st Contact Info) Description 01/29/2019 Abstract SFL CONVERSION [address] [place] [address] , Generic Conversion, Social History Tobacco Use [...] on filedocumented in this encounter Care Teams Business Analytics Analyst Relationship Specialty Start Date End Date Alber Chacko MD [address] [place] [phone] PCP - General FAMILY PRACTICE 11/04/23 documented as of this encounter
[2024-10-03 09:41] LABS: Lactic Acid Reflex 1.7 mmol/L (0.4-2.0)
[2024-10-03 09:47] LABS: Influenza A QL RT-PCR Positive (Negative); Influenza B QL RT-PCR Negative (Negative); RSV RNA, RT-PCR Negative (Negative)
[2024-10-03 09:53] LABS: Alanine Aminotransferase 33 U/L (16-63); Albumin Level 3.4 g/dL (3.4-5.0); Alkaline Phosphatase 65 U/L (46-116); Anion Gap 8 mmol/L (4-12); Aspartate Amino Transferase 14 U/L (15-37); Bilirubin,Total 0.6 mg/dL (0.00-1.00); Blood Urea Nitrogen 15 mg/dL (7-18); Calcium 8.3 mg/dL (8.5-10.1); Carbon Dioxide 27 mmol/L (21-32); Chloride 97 mmol/L (98-108); Estimated CRCL calculation 83 ml/min; Estimated Glomerular Filt Rate > 60; Glucose 180 mg/dL (70-99); Lipase 18 U/L (16-77); Osmolality Calculated 279 mOsm/kg (285-295); Potassium 3.6 mmol/L (3.5-5.1); Sodium 132 mmol/L (136-145); Total Protein 6.6 g/dL (6.4-8.2); Troponin I 6.2 ng/L (0.00-60.4)
[2024-10-03] MEDS: ONDANSETRON INJ 4 MG/2 ML VIAL (10:52)
[2024-10-03 11:20] LABS: Add Urine Microscopic? YES; Appearance Urine Clear (Clear); Bilirubin Urine Negative (Negative); Blood Urine Negative (Negative); Color Urine Yellow (Yellow); Glucose Urine UA Trace (Negative); Ketones Urine 1+ (Negative); Leukocyte Esterase Ur Negative LEU/UL (Negative); Nitrate Urine Negative (Negative); Protein Urine Trace (Negative); Specific Grav Ur 1.025 (1.010-1.020); Urobilinogen Urine 0.2 mg/dL (0.2-1.0); pH Urine 5.5 (5.0-8.0)
[2024-10-03 11:25] LABS: Bacteria Urine 1+ /hpf; Mucus Urine Few /lpf; RBC Urine None seen /hpf (0-2); Squamous Epithelial Cell Urine Few /hpf (Few); WBC Urine None seen /hpf (0-3)
--- NOTE | 2024-10-03 13:03 | PC.NURSE ---
1300 pt placed on hospital bed for comfort pt awaiting a bed at [facility]
[2024-10-03] MEDS: LORazepam INJ (*CRX) 2 MG/ML VIAL 1 MG IV PUSH ×2 (14:01→19:34)
[2024-10-03] MEDS: SODIUM CHLORIDE 0.9% IV 1,000 ML 125 ML IV CONT (17:41)
--- NOTE | 2024-10-03 19:10 | PC.NURSE ---
patient report received from CLAUDE Camejo. Patient sitting upright on hospital bed with VSS, ivf infusing. patient given ice chips per request and states he is anxious. patient says medication given earlier for anxiety was helpful. RN to request second dose so patient can rest.
--- NOTE | 2024-10-03 19:40 | PC.NURSE ---
patient medicated and update provided. see MAR. patient denies further needs, awake and alert resting on hospital bed with call light within reach.
--- NOTE | 2024-10-03 21:19 | PC.NURSE ---
RN phoned patient spouse Bouchra [phone] (per pt request) to provide update that patient will be awaiting bed at [facility] in ED this evening as no single room beds available as patient needs for his Flu A + diagnosis. Bouchra states she will be up in the morning.
[2024-10-03 21:22] LABS: Glucose Point of Care 164 mg/dl (65-105)
--- NOTE | 2024-10-03 22:15 | PC.NURSE ---
patient given more pillows by outer diameter technician Melissa at this time.
--- NOTE | 2024-10-03 22:49 | PC.NURSE ---
patient resting on bed, denies needs. ivf infusing. vss. call light within reach.
--- NOTE | 2024-10-03 23:39 | PC.NURSE ---
patient given ice chips per technology auditor.
[2024-10-04] VITALS (74 sets, daily range): BP systolic 117–176; BP diastolic 74–99; PULSE 88–107; RESP 16–18; TEMP 35.8–36.8; O2SAT 82–100; BMI 38.6
--- NOTE | 2024-10-04 00:17 | PC.NURSE ---
resting on bed in ED 3. call light within reach, RN monitoring.
--- NOTE | 2024-10-04 01:16 | PC.NURSE ---
patient sitting on bed. call light within reach. denies needs.
[2024-10-04] MEDS: SODIUM CHLORIDE 0.9% IV 1,000 ML 125 ML IV CONT ×3 (02:03→22:04)
--- NOTE | 2024-10-04 02:10 | PC.NURSE ---
new bag of IVF hung and patient sitting upright on side of hospital bed, watching tv. patient reports bed is uncomforable for his back and he is unable to sleep. patient offered warm blanket but does not wish for one at this time. thermostat adjusted per patient request. call light within reach. patient given ice chips.
--- NOTE | 2024-10-04 04:49 | PC.NURSE ---
patient resting in ED 3, awaiting bed at transfer facility. vss. RN monitoring. call light within reach.
[2024-10-04 05:57] LABS: Glucose Point of Care 142 mg/dl (65-105)
--- NOTE | 2024-10-04 06:23 | PC.NURSE ---
patient ambulatory to bathroom at this time. reported to missile and missile checkout technician he did have a BM. ERP Dr. Lora notified, states he will advance diet to clear liquids.
--- NOTE | 2024-10-04 06:34 | ED_ITS ---
HPI - General Adult General Chief complaint: Upper Respiratory Infection <Yeison Burris Last Filed: 10/04/24 06:43> Stated complaint: uri <Yeison Burris - Last Filed: 10/04/24 06:43> Time Seen by Provider: 10/03/24 08:37 <Yeison Burris - Last Filed: 10/04/24 06:43> Source: patient <Yeison Burris - Last Filed: 10/04/24 06:43> Mode of arrival: ambulatory <Yeison Burris - Last Filed: 10/04/24 06:43> Limitations: no limitations <Yeison Burris Last Filed: 10/04/24 06:43> History of Present Illness HPI narrative: Assumed care from Dr. Ramos at 1900. See his note for details. <Yeison Burris DO Last Filed: 10/04/24 06:43> Related Data Home medications: Home Medications ?Medication ?Instructions ?Recorded ?Confirmed ?Last Taken ?Type amitriptyline 100 mg tablet 100 mg PO HS 12/09/23 07/12/24 07/11/24 History clonidine HCl 0.2 mg tablet 0.2 mg PO HS 12/09/23 07/12/24 07/11/24 History trazodone 50 mg tablet 50 mg PO HS 12/09/23 07/12/24 07/11/24 History atorvastatin 20 mg tablet 20 mg PO QAM 07/05/24 07/12/24 07/11/24 History albuterol sulfate 90 mcg/actuation inhalation 10/04/24 Unknown History aerosol inhaler <Yeison Burris Last Filed: 10/04/24 06:43> Allergies/adverse reactions: Allergies Allergy/AdvReac Type Severity Reaction Status Date / Time No Known Allergies Allergy Verified 10/04/24 02:24 <Yeison Burris Last Filed: 10/04/24 06:43> Review of Systems 2 Review of Systems: All systems reviewed & are unremarkable except as noted in HPI and below <Yeison Burris DO - Last Filed: 10/04/24 06:43> [facility] Social History Social History: Social History Smoking packs per day: 1 Smoking cigarettes per day: 20.0 Years smoked: 25 Smoking pack-years: 25.00 Smoking status: Former smoker Tobacco type: cigarettes Smoking end date: 02/21/14 Alcohol intake: never Substance use: current Substance use type: marijuana Living arrangements: with family Additional living arrangements comments: Spiritual care concerns: No <Yeison Burris DO - Last Filed: 10/04/24 06:43> Exam 2 Narrative: General appearance: Well-developed, well-nourished Skin: Normal color Head: Normocephalic, nontraumatic Eyes: Clear conjunctiva Chest and respiratory: No respiratory distress. Heart: Regular rate/rhythm Abdomen: Soft, Epigastric tenderness, no organomegaly, quiet bowel sounds. Musculoskeletal: No deformity Neurologic: Alert and oriented ?3, [employer] is normal as tested, no gross motor deficit Psych: Anxious appearing <Yeison Burris DO - Last Filed: 10/04/24 06:43> Course Course Emergency Course: Vitals remained stable through shift. He had a BM around 615 and was asymptomatic so diet was advanced to CLD. Care transferred back to Dr. Ramos at 0700 <Yeison Burris DO - Last Filed: 10/04/24 06:43> Consultations Consultation #1: DR SYKES ADMIT TO HOSPITALIST, ADVANCED DIET TOLERATED <Joe Ramos MD - Last Filed: 10/04/24 13:41> Date: 10/04/24 <Joe Ramos MD - Last Filed: 10/04/24 13:41> Time: 13:35 <Joe Ramos MD - Last Filed: 10/04/24 13:41> Vital Signs Vital signs: Vital Signs Temperature 36.2 C L 10/03/24 08:43 Pulse Rate 104 H 10/03/24 08:43 Respiratory Rate 20 10/03/24 08:43 Blood Pressure 130/70 10/03/24 08:43 Pulse Oximetry 97 10/03/24 08:43 Oxygen Delivery Room Air 10/03/24 08:43 Temperature 36.3 C L 10/04/24 06:30 Pulse Rate 95 10/04/24 08:30 Respiratory Rate 17 10/04/24 08:30 Blood Pressure 151/96 H 10/04/24 10:25 Pulse Oximetry 97 10/04/24 10:25 Oxygen Delivery Room Air 10/04/24 06:30 <Yeison Burris DO - Last Filed: 10/04/24 06:43> Vital Signs Temperature 36.2 C L 10/03/24 08:43 Pulse Rate 104 H 10/03/24 08:43 Respiratory Rate 20 10/03/24 08:43 Blood Pressure 130/70 10/03/24 08:43 Pulse Oximetry 97 10/03/24 08:43 Oxygen Delivery Room Air 10/03/24 08:43 Temperature 36.3 C L 10/04/24 06:30 Pulse Rate 95 10/04/24 08:30 Respiratory Rate 17 10/04/24 08:30 Blood Pressure 151/96 H 10/04/24 10:25 Pulse Oximetry 97 10/04/24 10:25 Oxygen Delivery Room Air 10/04/24 06:30 <Joe Ramos MD - Last Filed: 10/04/24 13:41> Medical Decision Making MDM Narrative Medical decision making narrative: PATIENT CAME TO THE ED WITH FLU-LIKE SYMPTOMS AND EPIGASTRIC PAIN, VITAL SIGNS SHOWING HEART RATE OF 104 BEATS PER MINUTE OTHERWISE WITHIN NORMAL LIMIT PHYSICAL EXAMINATION SHOWING EPIGASTRIC TENDERNESS BLOOD WORKUP TODAY INCLUDES CBC, CMP, LIPASE SHOWED SODIUM OF 132, GLUCOSE OF 180, OTHERWISE WITHIN NORMAL LIMIT VIRAL PANEL CAME BACK POSITIVE FOR INFLUENZA A CT ABDOMEN AND PELVIS WITH IV CONTRAST SHOWED PARTIAL SMALL-BOWEL OBSTRUCTION NPO, PATIENT ON THE WAITING LIST TO BE TRANSFERRED TO [facility] DR. BURRIS STARTED PATIENT ON CLEAR LIQUID DIET THIS MORNING OCTOBER 04, 2024. PATIENT TOLERATED THE P.O. INTAKE WELL, ABLE TO HAVE FREQUENT BOWEL MOVEMENT. X-RAY SMALL BOWEL FOLLOW-THROUGH SHOWED PARTIAL SMALL-BOWEL OBSTRUCTION VERSUS ILEUS DR. SYKES , OUR SURGEON ON-CALL, RECOMMENDED TO ADMIT PATIENT TO OUR FACILITY, ADVANCE DIET TOLERATED AND POSSIBLE DISCHARGE IN THE MORNING. < Joe Ramos MD - Last Filed: 10/04/24 13:41> Vital Signs Vital Signs: Vital Signs Temperature 36.2 C L 10/03/24 08:43 Pulse Rate 104 H 10/03/24 08:43 Respiratory Rate 20 02/10/25 08:43 Blood Pressure 130/70 10/03/24 08:43 Pulse Oximetry 97 10/03/24 08:43 Oxygen Delivery Room Air 10/03/24 08:43 Temperature 36.3 C L 10/04/24 06:30 Pulse Rate 95 10/04/24 08:30 Respiratory Rate 17 10/04/24 08:30 Blood Pressure 151/96 H 10/04/24 10:25 Pulse Oximetry 97 10/04/24 10:25 Oxygen Delivery Room Air 10/04/24 06:30 <Yeison Burris DO - Last Filed: 10/04/24 06:43> Vital Signs Temperature 36.2 C L 10/03/24 08:43 Pulse Rate 104 H 10/03/24 08:43 Respiratory Rate 20 10/03/24 08:43 Blood Pressure 130/70 10/03/24 08:43 Pulse Oximetry 97 10/03/24 08:43 Oxygen Delivery Room Air 10/03/24 08:43 Temperature 36.3 C L 10/04/24 06:30 Pulse Rate 95 10/04/24 08:30 Respiratory Rate 17 10/04/24 08:30 Blood Pressure 151/96 H 10/04/24 10:25 Pulse Oximetry 97 10/04/24 10:25 Oxygen Delivery Room Air 10/04/24 06:30 <Joe Ramos MD - Last Filed: 10/04/24 13:41> Lab Data Result diagrams: 10/03/24 09:12 10/03/24 09:12 <Yeison Burris DO - Last Filed: 10/04/24 06:43> Labs: Lab Results 10/03/24 10/03/24 10/03/24 Range/Units 08:49 09:12 11:13 WBC 7.3 (4.8-10.8) K/mm3 RBC 5.11 (4.70-6.10) M/mm3 Hgb 14.6 (14.0-18.0) g/dL Hct 45.1 (40.0-54.0) % MCV 88.3 (78.0-102.0) fL MCH 28.6 (27.0-31.0) pg MCHC 32.4 (32-36) g/dL RDW 13.1 (11.6-14.4) % Plt Count 182 (150-420) K/mm3 MPV 9.0 (8.7-11.0) fl Immature Gran % (Auto) 0.4 H (0.0-0.0) % Neut % (Auto) 83.2 H (50.0-70.0) % Lymph % (Auto) 6.3 L (18.0-42.0) % [place] % (Auto) 8.4 (2.0-11.0) % Eos % (Auto) 1.6 (1.0-6.0) % Baso % (Auto) 0.1 (0.0-1.0) % Lymph # (Auto) 0.46 L (1.10-4.50) K/mm3 [place] # (Auto) 0.61 (0.10-0.90) K/mm3 Eos # (Auto) 0.12 (0.02-0.50) K/mm3 Baso # (Auto) 0.01 (0.00-0.10) K/mm3 Abs Immat Gran (auto) 0.03 H (0.00-0.00) K/mm3 Absolute Neuts (auto) 6.07 (1.70-7.20) K/mm3 Absolute Nucleated RBC 0.00 (0.00-0.00) K/mm3 Nucleated RBC % 0.0 (0-0.0) % Sodium 132 L (136-145) mmol/L Potassium 3.6 (3.5-5.1) mmol/L Chloride 97 L (98-108) mmol/L Carbon Dioxide 27 (21-32) mmol/L Anion Gap 8 (4-12) mmol/L BUN 15 (7-18) mg/dL Creatinine 1.20 (0.70-1.30) mg/dL Estim Creat Clear Calc 83 ml/min Estimated GFR > 60 (59 - ) Glucose 180 H (70-99) mg/dL POC Capillary Glucose (65-105) mg/dl Calculated Osmolality 279 L (285-295) mOsm/kg Lactic Acid 1.7 (0.4-2.0) mmol/L Calcium 8.3 L (8.5-10.1) mg/dL Total Bilirubin 0.6 (0.00-1.00) mg/dL AST 14 L (15-37) U/L ALT 33 (16-63) U/L Alkaline Phosphatase 65 (46-116) U/L Troponin I 6.2 (0.00-60.4) ng/L Total Protein 6.6 (6.4-8.2) g/dL Albumin 3.4 (3.4-5.0) g/dL Lipase 18 (16-77) U/L Urine Color Yellow (Yellow) Urine Appearance Clear (Clear) Urine pH 5.5 (5.0-8.0) Ur Specific [place] 1.025 H (1.010-1.020) Urine Protein Trace H (Negative) Urine Glucose (UA) Trace H (Negative) Urine Ketones 1+ H (Negative) Ur Blood (Man) Negative (Negative) Urine Nitrate Negative (Negative) Urine Bilirubin Negative (Negative) Urine Urobilinogen 0.2 (0.2-1.0) mg/dL Leukocyte Esterase Rfl Negative (Negative) DAPHNE/UL Urine RBC None seen (0-2) /hpf Urine WBC None seen (0-3) /hpf Ur Squamous Epith Cells Few (Few) /hpf Urine Bacteria 1+ H (None) /hpf Urine Mucus Few H /lpf Influenza A (RT-PCR) Positive A (Negative) Influenza B (RT-PCR) Negative (Negative) RSV (RT-PCR) Negative (Negative) SARS-CoV-2 RNA (RT-PCR) Negative (Negative) 10/03/24 10/04/24 10/04/24 Range/Units 21:20 05:54 09:15 WBC (4.8-10.8) K/mm3 RBC (4.70-6.10) M/mm3 Hgb (14.0-18.0) g/dL Hct (40.0-54.0) % MCV (78.0-102.0) fL MCH (27.0-31.0) pg MCHC (32-36) g/dL RDW (11.6-14.4) % Plt Count (150-420) K/mm3 MPV (8.7-11.0) fl Immature Gran % (Auto) (0.0-0.0) % Neut % (Auto) (50.0-70.0) % Lymph % (Auto) (18.0-42.0) % [place] % (Auto) (2.0-11.0) % Eos % (Auto) (1.0-6.0) % Baso % (Auto) (0.0-1.0) % Lymph # (Auto) (1.10-4.50) K/mm3 [place] # (Auto) (0.10-0.90) K/mm3 Eos # (Auto) (0.02-0.50) K/mm3 Baso # (Auto) (0.00-0.10) K/mm3 Abs Immat Gran (auto) (0.00-0.00) K/mm3 Absolute Neuts (auto) (1.70-7.20) K/mm3 Absolute Nucleated RBC (0.00-0.00) K/mm3 Nucleated RBC % (0-0.0) % Sodium (136-145) mmol/L Potassium (3.5-5.1) mmol/L Chloride (98-108) mmol/L Carbon Dioxide (21-32) mmol/L Anion Gap (4-12) mmol/L BUN (7-18) mg/dL Creatinine (0.70-1.30) mg/dL Estim Creat Clear Calc ml/min Estimated GFR (59 - ) Glucose (70-99) mg/dL POC Capillary Glucose 164 H 142 H 164 H (65-105) mg/dl Calculated Osmolality (285-295) mOsm/kg Lactic Acid (0.4-2.0) mmol/L Calcium (8.5-10.1) mg/dL Total Bilirubin (0.00-1.00) mg/dL AST (15-37) U/L ALT (16-63) U/L Alkaline Phosphatase (46-116) U/L Troponin I (0.00-60.4) ng/L Total Protein (6.4-8.2) g/dL Albumin (3.4-5.0) g/dL Lipase (16-77) U/L Urine Color (Yellow) Urine Appearance (Clear) Urine pH (5.0-8.0) Ur Specific [place] (1.010-1.020) Urine Protein (Negative) Urine Glucose (UA) (Negative) Urine Ketones (Negative) Ur Blood (Man) (Negative) Urine Nitrate (Negative) Urine Bilirubin (Negative) Urine Urobilinogen (0.2-1.0) mg/dL Leukocyte Esterase Rfl (Negative) DAPHNE/UL Urine RBC (0-2) /hpf Urine WBC (0-3) /hpf Ur Squamous Epith Cells (Few) /hpf Urine Bacteria (None) /hpf Urine Mucus /lpf Influenza A (RT-PCR) (Negative) Influenza B (RT-PCR) (Negative) RSV (RT-PCR) (Negative) SARS-CoV-2 RNA (RT-PCR) (Negative) 10/04/24 Range/Units 12:02 WBC (4.8-10.8) K/mm3 RBC (4.70-6.10) M/mm3 Hgb (14.0-18.0) g/dL Hct (40.0-54.0) % MCV (78.0-102.0) fL MCH (27.0-31.0) pg MCHC (32-36) g/dL RDW (11.6-14.4) % Plt Count (150-420) K/mm3 MPV (8.7-11.0) fl Immature Gran % (Auto) (0.0-0.0) % Neut % (Auto) (50.0-70.0) % Lymph % (Auto) (18.0-42.0) % [place] % (Auto) (2.0-11.0) % Eos % (Auto) (1.0-6.0) % Baso % (Auto) (0.0-1.0) % Lymph # (Auto) (1.10-4.50) K/mm3 [place] # (Auto) (0.10-0.90) K/mm3 Eos # (Auto) (0.02-0.50) K/mm3 Baso # (Auto) (0.00-0.10) K/mm3 Abs Immat Gran (auto) (0.00-0.00) K/mm3 Absolute Neuts (auto) (1.70-7.20) K/mm3 Absolute Nucleated RBC (0.00-0.00) K/mm3 Nucleated RBC % (0-0.0) % Sodium (136-145) mmol/L Potassium (3.5-5.1) mmol/L Chloride (98-108) mmol/L Carbon Dioxide (21-32) mmol/L Anion Gap (4-12) mmol/L BUN (7-18) mg/dL Creatinine (0.70-1.30) mg/dL Estim Creat Clear Calc ml/min Estimated GFR (59 - ) Glucose (70-99) mg/dL POC Capillary Glucose 181 H (65-105) mg/dl Calculated Osmolality (285-295) mOsm/kg Lactic Acid (0.4-2.0) mmol/L Calcium (8.5-10.1) mg/dL Total Bilirubin (0.00-1.00) mg/dL AST (15-37) U/L ALT (16-63) U/L Alkaline Phosphatase (46-116) U/L Troponin I (0.00-60.4) ng/L Total Protein (6.4-8.2) g/dL Albumin (3.4-5.0) g/dL Lipase (16-77) U/L Urine Color (Yellow) Urine Appearance (Clear) Urine pH (5.0-8.0) Ur Specific [place] (1.010-1.020) Urine Protein (Negative) Urine Glucose (UA) (Negative) Urine Ketones (Negative) Ur Blood (Man) (Negative) Urine Nitrate (Negative) Urine Bilirubin (Negative) Urine Urobilinogen (0.2-1.0) mg/dL Leukocyte Esterase Rfl (Negative) DAPHNE/UL Urine RBC (0-2) /hpf Urine WBC (0-3) /hpf Ur Squamous Epith Cells (Few) /hpf Urine Bacteria (None) /hpf Urine Mucus /lpf Influenza A (RT-PCR) (Negative) Influenza B (RT-PCR) (Negative) RSV (RT-PCR) (Negative) SARS-CoV-2 RNA (RT-PCR) (Negative) <Yeison Burris, DO - Last Filed: 10/04/24 06:43> Lab Results 10/03/24 10/03/24 10/03/24 Range/Units 08:49 09:12 11:13 WBC 7.3 (4.8-10.8) K/mm3 RBC 5.11 (4.70-6.10) M/mm3 Hgb 14.6 (14.0-18.0) g/dL Hct 45.1 (40.0-54.0) % MCV 88.3 (78.0-102.0) fL MCH 28.6 (27.0-31.0) pg MCHC 32.4 (32-36) g/dL RDW 13.1 (11.6-14.4) % Plt Count 182 (150-420) K/mm3 MPV 9.0 (8.7-11.0) fl Immature Gran % (Auto) 0.4 H (0.0-0.0) % Neut % (Auto) 83.2 H (50.0-70.0) % Lymph % (Auto) 6.3 L (18.0-42.0) % [place] % (Auto) 8.4 (2.0-11.0) % Eos % (Auto) 1.6 (1.0-6.0) % Baso % (Auto) 0.1 (0.0-1.0) % Lymph # (Auto) 0.46 L (1.10-4.50) K/mm3 [place] # (Auto) 0.61 (0.10-0.90) K/mm3 Eos # (Auto) 0.12 (0.02-0.50) K/mm3 Baso # (Auto) 0.01 (0.00-0.10) K/mm3 Abs Immat Gran (auto) 0.03 H (0.00-0.00) K/mm3 Absolute Neuts (auto) 6.07 (1.70-7.20) K/mm3 Absolute Nucleated RBC 0.00 (0.00-0.00) K/mm3 Nucleated RBC % 0.0 (0-0.0) % Sodium 132 L (136-145) mmol/L Potassium 3.6 (3.5-5.1) mmol/L Chloride 97 L (98-108) mmol/L Carbon Dioxide 27 (21-32) mmol/L Anion Gap 8 (4-12) mmol/L BUN 15 (7-18) mg/dL Creatinine 1.20 (0.70-1.30) mg/dL Estim Creat Clear Calc 83 ml/min Estimated GFR > 60 (59 - ) Glucose 180 H (70-99) mg/dL POC Capillary Glucose (65-105) mg/dl Calculated Osmolality 279 L (285-295) mOsm/kg Lactic Acid 1.7 (0.4-2.0) mmol/L Calcium 8.3 L (8.5-10.1) mg/dL Total Bilirubin 0.6 (0.00-1.00) mg/dL AST 14 L (15-37) U/L ALT 33 (16-63) U/L Alkaline Phosphatase 65 (46-116) U/L Troponin I 6.2 (0.00-60.4) ng/L Total Protein 6.6 (6.4-8.2) g/dL Albumin 3.4 (3.4-5.0) g/dL Lipase 18 (16-77) U/L Urine Color Yellow (Yellow) Urine Appearance Clear (Clear) Urine pH 5.5 (5.0-8.0) Ur Specific [place] 1.025 H (1.010-1.020) Urine Protein Trace H (Negative) Urine Glucose (UA) Trace H (Negative) Urine Ketones 1+ H (Negative) Ur Blood (Man) Negative (Negative) Urine Nitrate Negative (Negative) Urine Bilirubin Negative (Negative) Urine Urobilinogen 0.2 (0.2-1.0) mg/dL Leukocyte Esterase Rfl Negative (Negative) DAPHNE/UL Urine RBC None seen (0-2) /hpf Urine WBC None seen (0-3) /hpf Ur Squamous Epith Cells Few (Few) /hpf Urine Bacteria 1+ H (None) /hpf Urine Mucus Few H /lpf Influenza A (RT-PCR) Positive A (Negative) Influenza B (RT-PCR) Negative (Negative) RSV (RT-PCR) Negative (Negative) SARS-CoV-2 RNA (RT-PCR) Negative (Negative) 10/03/24 10/04/24 10/04/24 Range/Units 21:20 05:54 09:15 WBC (4.8-10.8) K/mm3 RBC (4.70-6.10) M/mm3 Hgb (14.0-18.0) g/dL Hct (40.0-54.0) % MCV (78.0-102.0) fL MCH (27.0-31.0) pg MCHC (32-36) g/dL RDW (11.6-14.4) % Plt Count (150-420) K/mm3 MPV (8.7-11.0) fl Immature Gran % (Auto) (0.0-0.0) % Neut % (Auto) (50.0-70.0) % Lymph % (Auto) (18.0-42.0) % [place] % (Auto) (2.0-11.0) % Eos % (Auto) (1.0-6.0) % Baso % (Auto) (0.0-1.0) % Lymph # (Auto) (1.10-4.50) K/mm3 [place] # (Auto) (0.10-0.90) K/mm3 Eos # (Auto) (0.02-0.50) K/mm3 Baso # (Auto) (0.00-0.10) K/mm3 Abs Immat Gran (auto) (0.00-0.00) K/mm3 Absolute Neuts (auto) (1.70-7.20) K/mm3 Absolute Nucleated RBC (0.00-0.00) K/mm3 Nucleated RBC % (0-0.0) % Sodium (136-145) mmol/L Potassium (3.5-5.1) mmol/L Chloride (98-108) mmol/L Carbon Dioxide (21-32) mmol/L Anion Gap (4-12) mmol/L BUN (7-18) mg/dL Creatinine (0.70-1.30) mg/dL Estim Creat Clear Calc ml/min Estimated GFR (59 - ) Glucose (70-99) mg/dL POC Capillary Glucose 164 H 142 H 164 H (65-105) mg/dl Calculated Osmolality (285-295) mOsm/kg Lactic Acid (0.4-2.0) mmol/L Calcium (8.5-10.1) mg/dL Total Bilirubin (0.00-1.00) mg/dL AST (15-37) U/L ALT (16-63) U/L Alkaline Phosphatase (46-116) U/L Troponin I (0.00-60.4) ng/L Total Protein (6.4-8.2) g/dL Albumin (3.4-5.0) g/dL Lipase (16-77) U/L Urine Color (Yellow) Urine Appearance (Clear) Urine pH (5.0-8.0) Ur Specific [place] (1.010-1.020) Urine Protein (Negative) Urine Glucose (UA) (Negative) Urine Ketones (Negative) Ur Blood (Man) (Negative) Urine Nitrate (Negative) Urine Bilirubin (Negative) Urine Urobilinogen (0.2-1.0) mg/dL Leukocyte Esterase Rfl (Negative) DAPHNE/UL Urine RBC (0-2) /hpf Urine WBC (0-3) /hpf Ur Squamous Epith Cells (Few) /hpf Urine Bacteria (None) /hpf Urine Mucus /lpf Influenza A (RT-PCR) (Negative) Influenza B (RT-PCR) (Negative) RSV (RT-PCR) (Negative) SARS-CoV-2 RNA (RT-PCR) (Negative) 10/04/24 Range/Units 12:02 WBC (4.8-10.8) K/mm3 RBC (4.70-6.10) M/mm3 Hgb (14.0-18.0) g/dL Hct (40.0-54.0) % MCV (78.0-102.0) fL MCH (27.0-31.0) pg MCHC (32-36) g/dL RDW (11.6-14.4) % Plt Count (150-420) K/mm3 MPV (8.7-11.0) fl Immature Gran % (Auto) (0.0-0.0) % Neut % (Auto) (50.0-70.0) % Lymph % (Auto) (18.0-42.0) % [place] % (Auto) (2.0-11.0) % Eos % (Auto) (1.0-6.0) % Baso % (Auto) (0.0-1.0) % Lymph # (Auto) (1.10-4.50) K/mm3 [place] # (Auto) (0.10-0.90) K/mm3 Eos # (Auto) (0.02-0.50) K/mm3 Baso # (Auto) (0.00-0.10) K/mm3 Abs Immat Gran (auto) (0.00-0.00) K/mm3 Absolute Neuts (auto) (1.70-7.20) K/mm3 Absolute Nucleated RBC (0.00-0.00) K/mm3 Nucleated RBC % (0-0.0) % Sodium (136-145) mmol/L Potassium (3.5-5.1) mmol/L Chloride (98-108) mmol/L Carbon Dioxide (21-32) mmol/L Anion Gap (4-12) mmol/L BUN (7-18) mg/dL Creatinine (0.70-1.30) mg/dL Estim Creat Clear Calc ml/min Estimated GFR (59 - ) Glucose (70-99) mg/dL POC Capillary Glucose 181 H (65-105) mg/dl Calculated Osmolality (285-295) mOsm/kg Lactic Acid (0.4-2.0) mmol/L Calcium (8.5-10.1) mg/dL Total Bilirubin (0.00-1.00) mg/dL AST (15-37) U/L ALT (16-63) U/L Alkaline Phosphatase (46-116) U/L Troponin I (0.00-60.4) ng/L Total Protein (6.4-8.2) g/dL Albumin (3.4-5.0) g/dL Lipase (16-77) U/L Urine Color (Yellow) Urine Appearance (Clear) Urine pH (5.0-8.0) Ur Specific [place] (1.010-1.020) Urine Protein (Negative) Urine Glucose (UA) (Negative) Urine Ketones (Negative) Ur Blood (Man) (Negative) Urine Nitrate (Negative) Urine Bilirubin (Negative) Urine Urobilinogen (0.2-1.0) mg/dL Leukocyte Esterase Rfl (Negative) DAPHNE/UL Urine RBC (0-2) /hpf Urine WBC (0-3) /hpf Ur Squamous Epith Cells (Few) /hpf Urine Bacteria (None) /hpf Urine Mucus /lpf Influenza A (RT-PCR) (Negative) Influenza B (RT-PCR) (Negative) RSV (RT-PCR) (Negative) SARS-CoV-2 RNA (RT-PCR) (Negative) <Joe Ramos MD - Last Filed: 10/04/24 13:41> Imaging Data Radiologist's impression: Impressions Upper GI and Small Bowel X-Ray 10/04/24 11:21 IMPRESSION: 1. Multiple mildly dilated loops of small bowel but with contrast progressing into the colon within 3 hours consistent with partial small bowel obstruction versus ileus. <Joe Ramos MD - Last Filed: 10/04/24 13:41> Critical Care Time Critical Care Time Critical Care Time: Yes <Joe Ramos MD - Last Filed: 10/04/24 13:41> Total Critical Care Time: 60 <Joe Ramos MD - Last Filed: 10/04/24 13:41> Discharge Plan Discharge Clinical Impression: Influenza, Partial small bowel obstruction <Yeison Burris DO - Last Filed: 10/04/24 06:43> Patient Disposition: Still a Patient <Yeison Burris DO - Last Filed: 10/04/24 06:43> Condition: Stable <Yeison Burris DO - Last Filed: 10/04/24 06:43> Additional Instructions: ADMIT TO HOSPITALIST <Yeison Burris DO - Last Filed: 10/04/24 06:43> Patient Language: Turkmen <Yeison Burris DO - Last Filed: 10/04/24 06:43> Prescriptions: No Action albuterol sulfate 90 mcg/actuation HFA aerosol inhaler INHALATION trazodone 50 mg tablet 50 mg PO HS clonidine HCl 0.2 mg tablet 0.2 mg PO HS amitriptyline 100 mg tablet 100 mg PO HS atorvastatin 20 mg tablet 20 mg PO QAM <Yeison Burris DO - Last Filed: 10/04/24 06:43>
--- NOTE | 2024-10-04 06:42 | PC.NURSE ---
patient awake and alert sitting upright on chair; given diet clear soda and orange jello. visitor at bedside, brought patient belongings, fresh clothes, tooth brush, etc. patient given body wipes to freshen up. VSS. call light within reach.
--- NOTE | 2024-10-04 07:00 | PC.NURSE ---
patient report given to CLAUDE Thomas for continuation of care on day shift.
--- NOTE | 2024-10-04 07:45 | PC.NURSE ---
Patient ambulatory to bathroom with steady gait and back to room. Positive bowel movement at this time.
--- NOTE | 2024-10-04 07:55 | PC.NURSE ---
Patient finished drinking oral contrast, Radiology made aware.
--- NOTE | 2024-10-04 08:09 | PC.NURSE ---
Patient being taken down to Radiology.
--- NOTE | 2024-10-04 08:28 | PC.NURSE ---
patient back in room from radiology
--- NOTE | 2024-10-04 08:59 | PC.NURSE ---
Patient going down to Radiology
--- NOTE | 2024-10-04 09:08 | PC.NURSE ---
Patient back in room from radiology
[2024-10-04 09:21] LABS: Glucose Point of Care 164 mg/dl (65-105)
--- NOTE | 2024-10-04 09:48 | PC.NURSE ---
Patient had another bowel movement.
--- NOTE | 2024-10-04 09:53 | PC.NURSE ---
Patient being taken down to Radiology
--- NOTE | 2024-10-04 10:27 | PC.NURSE ---
Patient amabulatory to the bathroom.
[2024-10-04] MEDS: LORazepam INJ (*CRX) 2 MG/ML VIAL 1 MG IV PUSH ×2 (10:43→20:48)
[2024-10-04 12:06] LABS: Glucose Point of Care 181 mg/dl (65-105)
[2024-10-04] MEDS: OSELTAMIVIR PHOSPHATE 75 MG CAPSULE PO ×2 (12:43→20:46)
--- NOTE | 2024-10-04 12:43 | PC.NURSE ---
ERP spoke with general surgeon, patient is okay to have tamiflu at this time
--- NOTE | 2024-10-04 13:51 | PC.NURSE ---
Report to Jenny
--- NOTE | 2024-10-04 14:00 | PC.NURSE ---
Patient admitted to unit room 201 from ED. Patient came to [facility], accompanied by ED staff. Patient able to transfer independently from w/ to chair. Patient and his educated on use of call light, bed controls and general hospital policies. Patient educated on isolation practices pertaining to droplet precautions as patient is positive for influenza A at this time. Blue folder provided to patient. Patient and family encouraged to ask questions and voice any concerns.
--- NOTE | 2024-10-04 14:38 | PC.NURSE ---
Made BLOWER BLAST FURNACE aware that patient has had 3 loose stools since entering the ED. Informed she is positive for Flu A.
[2024-10-04] MEDS: SODIUM CHLORIDE 0.9% IV 1,000 ML 150 ML IV CONT (15:15)
[2024-10-04 15:54] LABS: Basophils Absolute Auto 0.03 K/mm3 (0.00-0.10); Basophils Percent Auto 0.3 % (0.0-1.0); Eosinophils Absolute Auto 0.06 K/mm3 (0.02-0.50); Eosinophils Percent Auto 0.7 % (1.0-6.0); Hematocrit 47.6 % (40.0-54.0); Hemoglobin 15.2 g/dL (14.0-18.0); Immature Granulocyte Absolute 0.06 K/mm3 (0.00-0.00); Immature Granulocyte Percent A 0.7 % (0.0-0.0); Lymphocytes Absolute Auto 0.68 K/mm3 (1.10-4.50); Lymphocytes Percent Auto 7.8 % (18.0-42.0); Mean Corpuscular HGB Conc 31.9 g/dL (32-36); Mean Corpuscular Hemoglobin 28.3 pg (27.0-31.0); Mean Corpuscular Volume 88.5 fL (78.0-102.0); Mean Platelet Volume 9.2 fl (8.7-11.0); Monocytes Absolute Auto 0.72 K/mm3 (0.10-0.90); Monocytes Percent Auto 8.2 % (2.0-11.0); Neutrophils Absolute Auto 7.18 K/mm3 (1.70-7.20); Neutrophils Percent Auto 82.3 % (50.0-70.0); Platelet Count Result 206 K/mm3 (150-420); Red Blood Count 5.38 M/mm3 (4.70-6.10); Red Cell Distribution Width 13.2 % (11.6-14.4); White Blood Count 8.7 K/mm3 (4.8-10.8)
[2024-10-04 16:11] LABS: Alanine Aminotransferase 35 U/L (16-63); Albumin Level 3.6 g/dL (3.4-5.0); Alkaline Phosphatase 60 U/L (46-116); Anion Gap 12 mmol/L (4-12); Aspartate Amino Transferase 14 U/L (15-37); Bilirubin,Total 0.7 mg/dL (0.00-1.00); Blood Urea Nitrogen 19 mg/dL (7-18); Calcium 8.7 mg/dL (8.5-10.1); Carbon Dioxide 25 mmol/L (21-32); Chloride 100 mmol/L (98-108); Estimated CRCL calculation 75 ml/min; Estimated Glomerular Filt Rate 54; Glucose 201 mg/dL (70-99); Magnesium 1.9 mg/dL (1.8-2.4); Osmolality Calculated 292 mOsm/kg (285-295); Potassium 3.8 mmol/L (3.5-5.1); Sodium 137 mmol/L (136-145); Total Protein 7.2 g/dL (6.4-8.2)
[2024-10-04 17:15] LABS: Glucose Point of Care 191 mg/dl (65-105)
[2024-10-04] MEDS: ONDANSETRON INJ 4 MG/2 ML VIAL IV PUSH (18:41)
[2024-10-04] MEDS: traZODone HCL 50 MG TABLET PO (20:46)
[2024-10-04] MEDS: AMITRIPTYLINE HCL 25 MG TABLET 100 MG PO (20:47)
[2024-10-04] MEDS: cloNIDine HCL 0.2 MG TABLET PO (20:47)
[2024-10-04 21:04] LABS: Glucose Point of Care 154 mg/dl (65-105)
[2024-10-05] VITALS: BP 111/66; PULSE 96; RESP 16; TEMP 36.4; O2SAT 93
[2024-10-05] MEDS: ACETAMINOPHEN 325 MG TABLET 650 MG PO ×2 (03:59→11:45)
[2024-10-05] MEDS: SODIUM CHLORIDE 0.9% IV 1,000 ML 125 ML IV CONT (05:40)
[2024-10-05 05:53] LABS: Basophils Absolute Auto 0.03 K/mm3 (0.00-0.10); Basophils Percent Auto 0.6 % (0.0-1.0); Eosinophils Absolute Auto 0.09 K/mm3 (0.02-0.50); Eosinophils Percent Auto 1.7 % (1.0-6.0); Hematocrit 41.2 % (40.0-54.0); Hemoglobin 13.3 g/dL (14.0-18.0); Immature Granulocyte Absolute 0.02 K/mm3 (0.00-0.00); Immature Granulocyte Percent A 0.4 % (0.0-0.0); Lymphocytes Percent Auto 17.1 % (18.0-42.0); Mean Corpuscular HGB Conc 32.3 g/dL (32-36); Mean Corpuscular Hemoglobin 28.6 pg (27.0-31.0); Mean Corpuscular Volume 88.6 fL (78.0-102.0); Mean Platelet Volume 10.3 fl (8.7-11.0); Monocytes Absolute Auto 0.72 K/mm3 (0.10-0.90); Monocytes Percent Auto 13.7 % (2.0-11.0); Neutrophils Absolute Auto 3.51 K/mm3 (1.70-7.20); Neutrophils Percent Auto 66.5 % (50.0-70.0); Platelet Count Result 142 K/mm3 (150-420); Red Blood Count 4.65 M/mm3 (4.70-6.10); Red Cell Distribution Width 13.2 % (11.6-14.4); White Blood Count 5.3 K/mm3 (4.8-10.8)
[2024-10-05] MEDS: LORazepam INJ (*CRX) 2 MG/ML VIAL 1 MG IV PUSH (05:56)
[2024-10-05 06:07] LABS: Alanine Aminotransferase 31 U/L (16-63); Alkaline Phosphatase 54 U/L (46-116); Anion Gap 11 mmol/L (4-12); Aspartate Amino Transferase 16 U/L (15-37); Bilirubin,Total 0.8 mg/dL (0.00-1.00); Blood Urea Nitrogen 14 mg/dL (7-18); Calcium 7.9 mg/dL (8.5-10.1); Carbon Dioxide 25 mmol/L (21-32); Chloride 101 mmol/L (98-108); Estimated CRCL calculation 91 ml/min; Estimated Glomerular Filt Rate > 60; Glucose 138 mg/dL (70-99); Osmolality Calculated 286 mOsm/kg (285-295); Potassium 3.2 mmol/L (3.5-5.1); Sodium 137 mmol/L (136-145); Total Protein 6.2 g/dL (6.4-8.2)
--- OUTSIDE RECORDS SUMMARY | 2024-10-05 07:31 | XMS_ITS | Encounter Summary ---
Author Organization [facility] Address [facility] [place] [address] Care Team Providers Care Teacher'S Assistant Name Role Phone Alber Chacko MD Primary Care Provider Encounter Details Date Type Department Care Team (Late st Contact Info) Description 01/29/2019 Abstract [facility] CONVERSION [address] [place] [address] , Generic Conversion, Social History Tobacco Use [...] on filedocumented in this encounter Care Teams Teacher'S Assistant Relationship Specialty Start Date End Date Alber Chacko MD [address] [place] [phone] PCP - General FAMILY PRACTICE 11/04/23 documented as of this encounter
--- OUTSIDE RECORDS SUMMARY | 2024-10-05 07:31 | XMS_ITS | Clinical Summary ---
Author Organization [facility] Address [facility] [place] [address] Care Team Providers Care Professor Of Forestry Name Role Phone Alber Chacko MD Primary [...] complete this topic Insurance MEDICARE Care Teams Professor Of Forestry Relationship Specialty Start Date End Date Alber Chacko MD [address] [place] [phone] PCP - General FAMILY PRACTICE 11/04/23
[2024-10-05 07:39] LABS: Glucose Point of Care 135 mg/dl (65-105)
[2024-10-05 08:00] VITALS: BP 83/53; PULSE 84; RESP 16; TEMP 36.3; O2SAT 92
[2024-10-05] MEDS: OSELTAMIVIR PHOSPHATE 75 MG CAPSULE PO (09:04)
[2024-10-05] MEDS: KCL 20 MEQ/SW 100 ML 100 ML 50 MEQ IVPB (09:04)
[2024-10-05] MEDS: ATORVASTATIN 10 MG TABLET 20 MG PO (09:05)
[2024-10-05] MEDS: ENOXAPARIN 40 MG/0.4 ML SYRINGE SUB-Q (09:05)
[2024-10-05] MEDS: POTASSIUM CHLORIDE 20 MEQ PACKET (FOR LIQUID) 40 MEQ PO (09:09)
[2024-10-05 11:44] LABS: Glucose Point of Care 154 mg/dl (65-105)
--- NOTE | 2024-10-05 12:39 | PC.NURSE ---
Yesterday 10/04/2024 sent correspondence r/t stools. COMBO WELDER sent back OK .
--- NOTE | 2024-10-05 12:41 | PC.NURSE ---
Informed PUTTY MIXER patient able to keep lunch down with no emesis.
--- NOTE | 2024-10-05 13:32 | P.SS_ITS ---
Same Day Admit/Disch: HPI History of Present Illness Chief complaint: INFLUENZA A PARTIAL SMALL BOWEL OBSTRUCTION Narrative: Marco Elise is a 64 year old male Who presented initially to the emergency department with complaints of progressive cough lasting greater than 6 days and epigastric pain patient at that time had denied any nausea, vomiting, fever or chills he also stated he had not had a BM a did not feel constipated but continued to have abdominal pain. patient in the emergency department was found to have a partial SBO versus ileus as well as positive for influenza. Patient initially was set up for transfer to [facility] for consult to General surgery however ER physician had spoke with general surgeon after evaluation of CT abdomen recommended admission to the medical unit at [place] and to continue with NPO status and advance diet as tolerated once patient was having bowel movements or flatulence continue with IV fluids and electrolyte replacement on review of CT no need for intervention at that time and continue with serial KUBs. patient was then admitted as per recommendations was able to advance diet as tolerated patient began to have bowel movements and flatulence. Patient denied further abdominal pain. Continue to advance patient's diet as tolerated was able to tolerate a full diet and continue to have BMs and Flagyl it is follow-up KUB showed SBO versus ileus however contrast did flow to: With no obstruction. Patient had been started on Tamiflu for his influenza but was mostly asymptomatic except for generalized weakness and some nausea. Patient's labs were unremarkable at time of discharge and vital stable patient in no acute distress at time of discharge denied any further abdominal pain with full improvement in distension had improved continue to tolerate advanced diet with no nausea or vomiting. Patient was then discharged home recommended continued oral hydration and activity as well as to continue to advance diet the mid to small meals until tolerating if patient had return of symptoms with inability to have a BM or gas to seek medical attention. patient acknowledged and agreed with discharge plan and was discharged home will continue his Tamiflu upon discharge per recommended dosing. [facility] Past Medical History Medical History Diabetes Hyperlipemia Social History Social History Smoking packs per day: 1 Smoking cigarettes per day: 20.0 Years smoked: 20 Smoking pack-years: 20.00 Smoking status: Former smoker Tobacco type: cigarettes Second hand tobacco smoke exposure: No Smoking end date: 10/04/14 Alcohol intake: never Substance use: current Substance use type: marijuana Do You Feel Safe in your Home?: Yes Lack of Transportation: No Lack of Food: Never True Current Housing: I Have Housing Concerned About Future Housing: No Difficulty Paying Gas/Electric Bills: No Difficulty Paying for Meds: No Currently Unemployed: No Education: Trade/Vocational Certificate Difficulty w/ Childcare or Family Care: No Living arrangements: with family Additional living arrangements comments: Spiritual care concerns: No Same Day Admit/Disch: Med Pre-admit Medications Home Medications ?Medication ?Instructions ?Recorded ?Confirmed ?Type amitriptyline 100 mg tablet 100 mg PO HS 12/09/23 10/04/24 History clonidine HCl 0.2 mg tablet 0.2 mg PO HS 12/09/23 10/04/24 History trazodone 50 mg tablet 50 mg PO HS 12/09/23 10/04/24 History atorvastatin 20 mg tablet 20 mg PO QAM 07/05/24 10/04/24 History albuterol sulfate 90 mcg/actuation 1 puff inhalation Q4-6H PRN 10/04/24 10/04/24 History aerosol inhaler shortness of breath or wheezing ondansetron 4 mg disintegrating 4 mg PO Q8H PRN nausea and 10/05/24 Rx tablet vomiting #20 tabs oseltamivir 75 mg capsule (Tamiflu) 75 mg PO Q12HR #7 caps 10/05/24 Rx Review of Systems Review of Systems All systems reviewed & are unremarkable except as noted in HPI and below Exam Narrative: * GENERAL: Alert and oriented x 3. No acute distress. * EYES: PERRLA. * HEENT: Moist mucous membranes. * LUNGS: Clear to auscultation bilaterally. No accessory muscle use. * CARDIOVASCULAR: Regular rate and rhythm. No murmur. No JVD. S1-S2 * ABDOMEN: Soft, non tenderness and non-distended. No palpable masses. * EXTREMITIES: No edema. Non-tender * SKIN: No rashes or lesions. Skin warm, dry. * NEUROLOGIC: No focal neurological deficits. CN II-XII grossly intact * PSYCHIATRIC: Appropriate mood and affect. Good judgement and insight. DS: Data Data Completed and Pending Labs on day of discharge: Labs from last 24 hours 10/05/24 10/05/24 10/05/24 11:39 07:32 05:05 WBC 5.3 RBC 4.65 L Hgb 13.3 L Hct 41.2 MCV 88.6 MCH 28.6 MCHC 32.3 RDW 13.2 Plt Count 142 L MPV 10.3 Immature Gran % (Auto) 0.4 H Neut % (Auto) 66.5 Lymph % (Auto) 17.1 L Blackford % (Auto) 13.7 H Eos % (Auto) 1.7 Baso % (Auto) 0.6 Lymph # (Auto) 0.90 L Blackford # (Auto) 0.72 Eos # (Auto) 0.09 Baso # (Auto) 0.03 Abs Immat Gran (auto) 0.02 H Absolute Neuts (auto) 3.51 Absolute Nucleated RBC 0.00 Nucleated RBC % 0.0 Sodium 137 Potassium 3.2 L Chloride 101 Carbon Dioxide 25 Anion Gap 11 BUN 14 Creatinine 1.10 Estim Creat Clear Calc 91 Estimated GFR > 60 Glucose 138 H POC Capillary Glucose 154 H 135 H Hemoglobin A1c Calculated Osmolality 286 Calcium 7.9 L Magnesium Total Bilirubin 0.8 AST 16 ALT 31 Alkaline Phosphatase 54 Total Protein 6.2 L Albumin 3.0 L 10/04/24 10/04/24 10/04/24 20:59 17:09 15:48 WBC 8.7 RBC 5.38 Hgb 15.2 Hct 47.6 MCV 88.5 MCH 28.3 MCHC 31.9 L RDW 13.2 Plt Count 206 MPV 9.2 Immature Gran % (Auto) 0.7 H Neut % (Auto) 82.3 H Lymph % (Auto) 7.8 L Blackford % (Auto) 8.2 Eos % (Auto) 0.7 L Baso % (Auto) 0.3 Lymph # (Auto) 0.68 L Blackford # (Auto) 0.72 Eos # (Auto) 0.06 Baso # (Auto) 0.03 Abs Immat Gran (auto) 0.06 H Absolute Neuts (auto) 7.18 Absolute Nucleated RBC 0.00 Nucleated RBC % 0.0 Sodium 137 Potassium 3.8 Chloride 100 Carbon Dioxide 25 Anion Gap 12 BUN 19 H Creatinine 1.35 H Estim Creat Clear Calc 75 Estimated GFR 54 L Glucose 201 H POC Capillary Glucose 154 H 191 H Hemoglobin A1c 8.0 H Calculated Osmolality 292 Calcium 8.7 Magnesium 1.9 Total Bilirubin 0.7 AST 14 L ALT 35 Alkaline Phosphatase 60 Total Protein 7.2 Albumin 3.6 DS: Summary Hospital Course Reason for hospitalization: Influenza/Ileus Hospital Course: Marco Elise is a 64 year old male Who presented initially to the emergency department with complaints of progressive cough lasting greater than 6 days and epigastric pain patient at that time had denied any nausea, vomiting, fever or chills he also stated he had not had a BM a did not feel constipated but continued to have abdominal pain. patient in the emergency department was found to have a partial SBO versus ileus as well as positive for influenza. Patient initially was set up for transfer to [facility] for consult to [facility] surgery however ER physician had spoke with general surgeon after evaluation of CT abdomen recommended admission to the medical unit at [place] and to continue with NPO status and advance diet as tolerated once patient was having bowel movements or flatulence continue with IV fluids and electrolyte replacement on review of CT no need for intervention at that time and continue with serial KUBs. patient was then admitted as per recommendations was able to advance diet as tolerated patient began to have bowel movements and flatulence. Patient denied further abdominal pain. Continue to advance patient's diet as tolerated was able to tolerate a full diet and continue to have BMs and Flagyl it is follow-up KUB showed SBO versus ileus however contrast did flow to: With no obstruction. Patient had been started on Tamiflu for his influenza but was mostly asymptomatic except for generalized weakness and some nausea. Patient's labs were unremarkable at time of discharge and vital stable patient in no acute distress at time of discharge denied any further abdominal pain with full improvement in distension had improved continue to tolerate advanced diet with no nausea or vomiting. Patient was then discharged home recommended continued oral hydration and activity as well as to continue to advance diet the mid to small meals until tolerating if patient had return of symptoms with inability to have a BM or gas to seek medical attention. patient acknowledged and agreed with discharge plan and was discharged home will continue his Tamiflu upon discharge per recommended dosing. Status at Discharge Functional status at discharge: independent ambulation Overall status at discharge: patient is progressing back to baseline Time Spent with Patient Time attestation: Total time spent providing and/or coordinating discharge services: Time spent: Greater than 30 minutes DS: Admitting Diagnosis Discharge Date 10/05/2024 Admitting Diagnosis Influenza/Ileus DS: Discharge Diagnosis Discharge Diagnosis (1) Ileus: Code(s): K56.7 - Ileus, unspecified Status: Acute (2) Influenza: Code(s): J11.1 - Influenza due to unidentified influenza virus with other respiratory manifestations Status: Acute (3) Diabetes: Code(s): E11.9 - Type 2 diabetes mellitus without complications Status: Acute (4) Hyperlipemia: Code(s): E78.5 - Hyperlipidemia, unspecified Status: Acute Plan Disposition: Discharged to home Discharge Plan Discharge Attending physician on discharge: Dmitri Flores Discharging Clinician: Kailey Hinojosa Anticipated Discharge Date/Time: 10/05/24 13:22 Patient Disposition: Home, Self-Care Activity: unlimited and as tolerated Diet: as tolerated Discharge Instructions: Influenza: * Continue with Tamiflu as prescribed * Zofran as needed for N/V * Symptom management may use acetaminophen for aches pains and fever * Encourage hydration * Activity as tolerated Ileus * Encourage hydration * activity as tolerated * may increase diet as tolerated small meals * If abdominal pain and distention returns and you stop having bowel movements with no gas please seek medical attention How can you care for yourself at home? ? Keep track of any new symptoms or changes in your symptoms. ? Rest until you feel better. ? Be safe with medicines. Take your medicines exactly as prescribed. Call your doctor if you think you are having a problem with your medicine. ? Do not drive after taking a prescription pain medicine. ? Ensure to follow-up with primary care physician as indicated and provide updated medication list provided to you at discharge. When should you call for help? Call 911 anytime you think you may need emergency care. For example, call if: ? You passed out (lost consciousness). Call your doctor now or seek immediate medical care if: ? You have new symptoms like fever, difficulty breathing, Chest pain, vomiting, or rash. ? You have new or different pain. ? You are confused and are having trouble thinking clearly. ? Your symptoms are getting worse. Watch closely for changes in your health, and be sure to contact your doctor if: ? You do not get better as expected. Patient Instructions: Antibiotic Form, Ondansetron (By mouth), Oseltamivir (By mouth), Influenza (DC), Fall Prevention for Older Adults (DC), Bowel Obstruction (DC) Patient Language: Syriac Stand Alone Forms: General Discharge Information Follow-up/Referrals: Vance,MD Alber [Primary Care Provider] - 3 Weeks Discharge Medications: New oseltamivir [Tamiflu] 75 mg Capsule 75 mg PO Q12HR Qty: 7 0RF ondansetron 4 mg tablet,disintegrating 4 mg PO Q8H PRN (Reason: nausea and vomiting) Qty: 20 0RF Continued albuterol sulfate 90 mcg/actuation HFA aerosol inhaler 1 puff INHALATION Q4-6H PRN (Reason: shortness of breath or wheezing) trazodone 50 mg tablet 50 mg PO HS clonidine HCl 0.2 mg tablet 0.2 mg PO HS amitriptyline 100 mg tablet 100 mg PO HS atorvastatin 20 mg tablet 20 mg PO QAM Date of admission: 10/04/24 13:30 Primary Care Provider: VanceAlber Admitting Provider: Mushtaq Gómez Attending physician on admission: Kailey Hinojosa Condition: Stable Quality VTE Prophylaxis VTE prophylaxis: mechanical ordered -Patient's previous records reviewed on admission -ER notes reviewed in detail on admission -discussed all findings and current treatment plan with patient/Family/POA -Consultations reviewed for recommendations -Patient's disposition for safe discharge discussed with pillowcase folder Dictation performed by [employer] direct speech recognition software, therefore program assistant variants and typographical errors may occur. Hospitalist MIPS Advance Care Plan I have confirmed that the patient's Advanced Care Plan is present, code status is documented, or surrogate decision maker is listed in patient medical record.: Yes Medication Reconciliation I have utilized all available resources to obtain, update and review the patients current medications (includes all prescriptions, OTC, herbals, cannabis, and nutritional supplements).: Yes The patient is not eligible for med reconciliation; the patient is in a emergent medical situation where delaying treatment would jeopardize the patients health.: No Heart Failure (Exclusion) Patient has history of Heart Transplant or Left Ventricular Assistive Device?: No IF YES, STOP HERE Heart Failure (Qualifier) Patient has current or prior documentation of LVEF less than or equal to 40%, or mod/servere depressed LVSF?: No IF NO, STOP HERE
--- NOTE | 2024-10-05 14:16 | PC.NURSE ---
Discharge instruction given to patient with education on advancing diet, importance of rest and increase activity as tolerated. Educated on hydration. Patient verbalized agreement to all discharge instruction and education. IV to Left AC removed, site was WNL with no redness, bruising or edema noted. Patient tolerated well.
--- NOTE | 2024-10-05 14:30 | PC.NURSE ---
Patient left unit in w/c accompanied by patient's and nurse. Personal belongings sent home with patient. Patient left hospital grounds in privately owned vehicle. Discharge instructions given to patient by charge nurse and patient voiced understanding.
--- NOTE | 2024-10-06 14:18 | PC.NURSE ---
Discharge call back attempted, no answer
--- NOTE | 2024-10-07 10:23 | PC.NURSE ---
Discharge call back completed, no questions regarding dc instructions, states everyone was wonderful
== END 2024-10-05 14:30 | disposition home or self-care (01) ==
LOC: CHSED 10-04 09:03 → CHS2ND 10-04 13:41
PROVIDERS: Family Medicine; Nurse Practitioner Acute Care; Admitting Provider Internal Medicine; Emergency Provider Emergency Medicine; PCP Family Medicine; Visit Provider Nurse Practitioner Family
DX: J10.1 Influenza due to other identified influenza virus with other respiratory manifestations (principal); K56.7 Ileus, unspecified; E11.8 Type 2 diabetes mellitus with unspecified complications; E78.5 Hyperlipidemia, unspecified; Z87.891 Personal history of nicotine dependence; Z20.822 Contact with and (suspected) exposure to COVID-19; Z79.51 Long term (current) use of inhaled steroids; Z79.899 Other long term (current) drug therapy
CPT/HCPCS: 36415; 74018; 74176; 74250; 80053; 81001; 82948; 83036; 83605; 83690; 83735; 84484; 85025; 87637; 93005; 96365; 96366; 96372; 96374; 96375; 96376; 99285; A9270; G0378; J1650; J2060; J2405; J3480; J7030

== ENCOUNTER 2025-01-04 08:33 | Outpatient (CLI) | payer MEDICARE, SELFPAY ==
--- OUTSIDE RECORDS SUMMARY | 2025-01-04 08:41 | XMS_ITS | Clinical Summary ---
Author Organization [facility] Address [facility] [place] [address] Care Team Providers Care Database Consultant Name Role Phone Alber Chacko MD Primary [...] Td Vaccines ( 1 - Tdap) 1981 Pneumococcal Vaccine: 50+ Years (1 of 1 - PCV) 02/12/2012 Zoster Vaccines (1 of 2) 02/12/2012 COVID-19 Vaccine (3 - 2023-2 5 season) 2024 01/29/2021, 01/08/2021 RSV Immunization or 60+ Years (1 - [...] complete this topic Insurance MEDICARE Care Teams Database Consultant Relationship Specialty Start Date End Date Alber Chacko MD [address] [place] [address] [phone] PCP - General FAMILY PRACTICE 11/04/23
--- OUTSIDE RECORDS SUMMARY | 2025-01-04 08:41 | XMS_ITS | Encounter Summary ---
Author Organization [facility] Address [facility] [place] [address] Care Team Providers Care Oracle Consultant Name Role Phone Alber Chacko MD Primary Care Provider Encounter Details Date Type Department Care Team (Late st Contact Info) Description 01/29/2019 Abstract [facility] CONVERSION [address] [place] [address] , Generic Conversion, Social History Tobacco Use [...] on filedocumented in this encounter Care Teams Oracle Consultant Relationship Specialty Start Date End Date Alber Chacko MD [address] [place] [phone] PCP - General FAMILY PRACTICE 11/04/23 documented as of this encounter
[2025-01-04 08:57] LABS: Basophils Absolute Auto 0.06 K/mm3 (0.00-0.10); Basophils Percent Auto 0.7 % (0.0-1.0); Eosinophils Absolute Auto 0.15 K/mm3 (0.02-0.50); Eosinophils Percent Auto 1.7 % (1.0-6.0); Hematocrit 49.8 % (40.0-54.0); Hemoglobin 16.1 g/dL (14.0-18.0); Immature Granulocyte Absolute 0.04 K/mm3 (0.00-0.00); Immature Granulocyte Percent A 0.4 % (0.0-0.0); Lymphocytes Absolute Auto 1.64 K/mm3 (1.10-4.50); Lymphocytes Percent Auto 18.1 % (18.0-42.0); Mean Corpuscular HGB Conc 32.3 g/dL (32-36); Mean Corpuscular Hemoglobin 28.4 pg (27.0-31.0); Mean Platelet Volume 9.3 fl (8.7-11.0); Monocytes Percent Auto 7.7 % (2.0-11.0); Neutrophils Absolute Auto 6.49 K/mm3 (1.70-7.20); Neutrophils Percent Auto 71.4 % (50.0-70.0); Platelet Count Result 218 K/mm3 (150-420); Red Blood Count 5.66 M/mm3 (4.70-6.10); Red Cell Distribution Width 13.1 % (11.6-14.4); White Blood Count 9.1 K/mm3 (4.8-10.8)
[2025-01-04 09:11] LABS: Partial Thromboplastin Time 27.6 Sec (23.9-30.70); Prothrombin Time 10.7 Seconds (9.50-12.1)
[2025-01-04 11:00] LABS: Anion Gap 8 mmol/L (4-12); Blood Urea Nitrogen 26 mg/dL (9-20); Calcium 9.5 mg/dL (8.4-10.2); Carbon Dioxide 25 mmol/L (22-30); Chloride 105 mmol/L (98-107); Estimated Glomerular Filt Rate > 60; Glucose 99 mg/dL (65-110); Osmolality Calculated 290 mOsm/kg (285-295); Potassium 4.3 mmol/L (3.4-5.0); Sodium 138 mmol/L (137-145)
== END 2025-01-04 08:34 | disposition home or self-care (01) ==
LOC: CHSLAB 08:34
PROVIDERS: PCP Family Medicine; Visit Provider Urology
DX: E11.9 Type 2 diabetes mellitus without complications (principal); D49.4 Neoplasm of unspecified behavior of bladder; R80.9 Proteinuria, unspecified; R82.90 Unspecified abnormal findings in urine; N33 Bladder disorders in diseases classified elsewhere
CPT/HCPCS: 36415; 80048; 85025; 85610; 85730; 87086

== ENCOUNTER 2025-01-10 01:21 | Day surgery (SDC) | payer MEDICARE, SELFPAY ==
--- NOTE | 2025-01-03 07:59 | PC.NURSE ---
Report to the Outpatient Waiting Room, entrance under the green pavilion located off [facility], at time _0600_ on date _[phone]_. Planned Procedure Time: _0730_. Time changes happen often and if your time is changed the preop area will call you the afternoon before. - You and your visitor will be asked to self-screen and do not enter if you have any COVID symptoms. Please call surgeon if you need to reschedule. - A mask is optional within the hospital at this time. Patients may have clear liquids (water, carbonated beverages, clear teas, apple juice) until 3 hours prior to surgery with a maximum of 20 ounces. - No food from midnight until time of surgery and no smoking, or chewing tobacco (or any form of nicotine). No chewing gum, candy or mints. Take only the following medications with a SIP of water on the morning of surgery: ___None____ DO NOT STOP ANY OF YOUR OTHER PRESCRIPTION MEDICATIONS PRIOR TO SURGERY EXCEPT THE FOLLOWING Hold all vitamins and supplements for 3 days per anesthesiologist. Medications to discontinue per physician Date to take last dose Please no make-up, nail sinhala, hairspray, perfume, deodorant, or body powder the day of surgery. No jewelry (including any body piercings) or valuables the day of surgery, leave them at home. Please take a shower or bath the night before, or the morning of, surgery with an antibacterial soap. Wear comfortable, loose fitting clothing. - Jewelry must be removed prior to entering the operating room. Rings and piercings that are not removed may be cut off. - The hospital will not accept responsibility for valuables. - Please leave all valuables, including medications, at home the day of surgery. If you are going home after surgery, a licensed city route driver must drive you home. - NO public transportation without another adult if you receive anesthesia. - We recommend that an adult stay with you for 24 hours following discharge. - We also recommend that you do not drive, make important decision, drink alcoholic beverages, or take any drugs that were not prescribed by your health care provider for at least 24 hours after your discharge time. Follow any additional instructions given to you from your surgeon. Telephone instructions given to __Marco___and asked if any additional questions and then verbalized understanding. Patient advised to call surgeon office or pre surgery nurse liaison [phone] if any additional questions.
[2025-01-03 08:01] VITALS: BMI 36.0
[2025-01-10] VITALS (8 sets, daily range): BP systolic 107–146; BP diastolic 68–84; PULSE 64–91; RESP 10–20; TEMP 36.3–36.6; O2SAT 95–100
--- OUTSIDE RECORDS SUMMARY | 2025-01-10 01:24 | XMS_ITS | Clinical Summary ---
Author Organization [facility] Address [facility] [place] [address] Care Team Providers Care Puller Out Name Role Phone Alber Chacko MD Primary Care Provider [phone] Social History Tobacco Use Types Packs/Day Years [...] complete this topic Insurance MEDICARE Care Teams Puller Out Relationship Specialty Start Date End Date Alber Chacko MD [address] [place] [address] [phone] PCP - General FAMILY PRACTICE 11/04/23
--- OUTSIDE RECORDS SUMMARY | 2025-01-10 01:24 | XMS_ITS | Encounter Summary ---
Author Organization [facility] Address [facility] [place] [address] Care Team Providers Care Fruit Cutter Name Role Phone Alber Chacko MD Primary Care Provider Encounter Details Date Type Department Care Team (Late st Contact Info) Description 01/29/2019 Abstract [facility]FL CONVERSION [address] [place] [address] , Generic Conversion, Social History Tobacco Use [...] on filedocumented in this encounter Care Teams Fruit Cutter Relationship Specialty Start Date End Date Alber Chacko MD [address] [place] [phone] PCP - General FAMILY PRACTICE 11/04/23 documented as of this encounter
[2025-01-10] MEDS: LACTATED RINGERS 1,000 ML 30 ML IV CONT (06:50)
[2025-01-10 06:55] LABS: Glucose Point of Care 126 mg/dl (65-105)
--- NOTE | 2025-01-10 06:56 | WPDANESEPPF ---
Anes - Initial Pre Proc Eval Procedure: Operation Date: 01/10/25 07:30 Proposed Procedures p Cystoscopy, Possible Bladder Biopsy/Fulguration, - Bolivar Danielson MD s Possible Trans Urethral Resection Bladder Tumor - Bolivar Danielson MD Date/Time: 01/10/25 06:56 Surgeon: Bolivar Danielson MD Pre Op Diagnosis: bladder CA Patient Data Age: 64 Gender: M Height: 1.88 m Weight: 127.3 kg Allergies Allergy/AdvReac Type Severity Reaction Status Date / Time No Known Allergies Allergy Verified 01/03/25 08:00 Home Medications Medication Instructions Recorded Confirmed Type amitriptyline 100 mg tablet 100 mg PO HS 12/09/23 01/10/25 History clonidine HCl 0.2 mg tablet 0.2 mg PO HS 12/09/23 01/10/25 History trazodone 50 mg tablet 50 mg PO HS 12/09/23 01/10/25 History atorvastatin 20 mg tablet 20 mg PO QAM 07/05/24 01/10/25 History glipizide 5 mg tablet, extended 5 mg PO DAILY 01/03/25 01/10/25 History release 24 hr Laboratory Tests 01/10/25 06:51 POC Capillary Glucose 126 H mg/dl (65-105) Patient hx anesthesia problems: none Family hx anesthesia problems: none Results Review: All pre-operative results and documents have been reviewed as part of the pre-operative evaluation. [facility] Past Medical History Medical History Diabetes Hyperlipemia Social History Social History (System 10/07/24 @ 11:52 by Cedrick Ramirez) Smoking packs per day: 1 Smoking cigarettes per day: 20.0 Years smoked: 20 Smoking pack-years: 20.00 Smoking status: Former smoker Tobacco type: cigarettes Second hand tobacco smoke exposure: No Smoking end date: 10/04/14 Alcohol intake: never Substance use: current Substance use type: marijuana Other substance usage details: Couple times a week. Do You Feel Safe in your Home?: Yes Lack of Transportation: No Lack of Food: Never True Current Housing: I Have Housing Concerned About Future Housing: No Difficulty Paying Gas/Electric Bills: No Difficulty Paying for Meds: No Currently Unemployed: No Education: Trade/Vocational Certificate Difficulty w/ Childcare or Family Care: No Living arrangements: with family Additional living arrangements comments: Spiritual care concerns: No Anes - Eval Final PreProcedure Day of Procedure 01/10/25 06:56 Patient weight: obese Heart: regular rate and rhythm Lungs: clear to auscultation Airway: Mallampati scale class III Neurological: alert and oriented Last oral intake: >/= 8 hours ASA classification: III Emergent: no Anesthetic plan: proceed Anesthesia type and monitoring: general LMA and standard monitoring Results Review: All pre-operative results and documents have been reviewed as part of the pre-operative evaluation. Informed Consent: The patient's anesthetic plan and its attendant risks and benefits were discussed with the patient/family/POA. Questions were solicited and answers provided to the satisfaction of the patient/family/POA.
[2025-01-10] MEDS: LIDOCAINE 2% GEL UROJET 10 ML PKG MUCOUS MEM (07:07)
--- NOTE | 2025-01-10 07:18 | PM.IMHP ---
H&P: HPI History of Present Illness Date/Time: 01/10/25 07:18 Chief Complaint: bladder cancer Narrative: 64 yr old male here for cystoscopy as cannot tolerate in office. Review of Systems Review of Systems: All systems reviewed & are unremarkable except as noted in HPI and below PMFSH Past Medical History Medical History Diabetes Hyperlipemia Social History Social History Smoking packs per day: 1 Smoking cigarettes per day: 20.0 Years smoked: 20 Smoking pack-years: 20.00 Smoking status: Former smoker Tobacco type: cigarettes Second hand tobacco smoke exposure: No Smoking end date: 10/04/14 Alcohol intake: never Substance use: current Substance use type: marijuana Other substance usage details: Couple times a week. Do You Feel Safe in your Home?: Yes Lack of Transportation: No Lack of Food: Never True Current Housing: I Have Housing Concerned About Future Housing: No Difficulty Paying Gas/Electric Bills: No Difficulty Paying for Meds: No Currently Unemployed: No Education: Trade/Vocational Certificate Difficulty w/ Childcare or Family Care: No Living arrangements: with family Additional living arrangements comments: Spiritual care concerns: No Meds Home Medications and Allergies Home Medications Medication Instructions Recorded Confirmed Type amitriptyline 100 mg tablet 100 mg PO HS 12/09/23 01/10/25 History clonidine HCl 0.2 mg tablet 0.2 mg PO HS 12/09/23 01/10/25 History trazodone 50 mg tablet 50 mg PO HS 12/09/23 01/10/25 History atorvastatin 20 mg tablet 20 mg PO QAM 07/05/24 01/10/25 History glipizide 5 mg tablet, extended 5 mg PO DAILY 01/03/25 01/10/25 History release 24 hr Allergies Allergy/AdvReac Type Severity Reaction Status Date / Time No Known Allergies Allergy Verified 01/03/25 08:00 Vital Signs Vital Signs - 24 hr 01/10/25 06:30 Temperature 36.3 C L Pulse Rate 64 Respiratory Rate 16 Blood Pressure 146/80 H Pulse Oximetry 98 Oxygen Delivery Room Air Exam Const: General: cooperative and comfortable Resp: Effort & Inspection: normal respiratory effort Cardio: Rate: regular rate Rhythm: regular rhythm Assessment and Plan Assessment and plan (1) Bladder tumor: Code(s): D49.4 - Neoplasm of unspecified behavior of bladder Status: Acute Assessment and Plan: Proceed with cystoscopy, possible bladder biopsy with fulguration, possible turbt.
--- NOTE | 2025-01-10 07:20 | WPDHPUPDATE1 ---
History and Physical Update Update Date/Time: 01/10/25 07:20 History and Physical has been reviewed, including an updated exam of the patient. There are NO changes in the patient's condition. Risks, benefits, and alternatives have been discussed and questions answered. Patient agrees to proceed with procedure.
[2025-01-10] MEDS: ceFAZolin 3 GM/D5W 100 ML 100 ML IVPB (07:26)
[2025-01-10] MEDS: ceFAZolin 2 GM/D5W 50 ML 2 GM/50 ML BAG IVPB (07:40)
--- NOTE | 2025-01-10 07:53 | W.PM.PROC2 ---
Procedure Note - Detailed Date of Procedure 01/10/25 Pre-op Diagnosis bladder CA Post-op Diagnosis Same Procedure Performed CYSTOSCOPY WITH BLADDER BIOPSY AND FULGURATION Surgeon Bolivar Danielson MD Anesthesia General Description of Procedure Patient was taken the operative suite correctly identified. Once anesthesia was obtained was placed in the dorsal lithotomy position and prepped and draped usual sterile fashion. Twenty-two Ethiopian scope was inserted the bladder direct vision. There were no urethral strictures. Prostate was nonobstructive. The bladder itself has no papillary tumors but there is some raised irregularity just lateral to both ureteral orifices. I went ahead and used the cold cup biopsy to biopsy these areas and fulgurated. There was good hemostasis at termination. 2% viscous lidocaine was inserted into the urethra patient is taken recovery stable condition. He is to call for path results in 1 week. This completes dictation. Please send a copy of op note to my office. Estimated Blood Loss 0 Drains No Packing No Pathology Yes Complications No immediate complications Condition Stable Disposition PACU
[2025-01-10 08:03] LABS: Glucose Point of Care 140 mg/dl (65-105)
== END 2025-01-10 09:13 | disposition home or self-care (01) ==
PROVIDERS: PCP Family Medicine; Visit Provider Urology
PROC: 0TBB8ZX Excision of Bladder, Via Natural or Artificial Opening Endoscopic, Diagnostic (ICD-10-PCS; CPT 52204; principal; 2025-01-10 07:30)
DX: N32.89 Other specified disorders of bladder (principal); E11.9 Type 2 diabetes mellitus without complications; E78.5 Hyperlipidemia, unspecified; Z87.891 Personal history of nicotine dependence; F12.90 Cannabis use, unspecified, uncomplicated
CPT/HCPCS: 52204; 82948; 88305; J0690; J2003; J2250; J2405; J2704; J3010; J7120

== ENCOUNTER 2025-08-08 10:00 | Outpatient (CLI) | payer MEDICARE, SELFPAY ==
[2025-08-08 11:08] LABS: Anion Gap 11 mmol/L (4-12); Blood Urea Nitrogen 16 mg/dL (9-20); Calcium 9.5 mg/dL (8.4-10.2); Carbon Dioxide 23 mmol/L (22-30); Chloride 103 mmol/L (98-107); Estimated Glomerular Filt Rate > 60; Glucose 106 mg/dL (65-110); Osmolality Calculated 285 mOsm/kg (285-295); Potassium 4.7 mmol/L (3.4-5.0); Sodium 137 mmol/L (137-145)
--- OUTSIDE RECORDS SUMMARY | 2025-08-08 11:33 | XMS_ITS | Encounter Summary ---
Author Organization [facility] Address [facility] [place] [address] Care Team Providers Care Cloth Stock Sorter Name Role Phone Alber Chacko MD Primary Care Provider Encounter Details Date Type Department Care Team (Late st Contact Info) Description 01/29/2019 Abstract SFL CONVERSION [address] [place] [address] , Generic Conversion, Social History Tobacco Use [...] on filedocumented in this encounter Care Teams Cloth Stock Sorter Relationship Specialty Start Date End Date Alber Chacko MD [address] [place] [id number] PCP - General FAMILY PRACTICE 11/04/23 documented as of this encounter
--- OUTSIDE RECORDS SUMMARY | 2025-08-08 11:33 | XMS_ITS | Clinical Summary ---
Author Organization [facility] Address [facility] [place] [address] Care Team Providers Care Fishing Captain Name Role Phone Alber Chacko MD Primary [...] 8:57 AM CDT Height 190.5 cm (6' 3) 12/24/2018 8:57 AM CDT Body Mass Index [...] of 2) 02/12/2012 COVID-19 Vaccine (3 - 2024-2 6 season) 2025 01/29/2021, 01/08/2021 Influenza Adult (#1) 2025 12/20/2018, 05/27/2017 RSV Immunization or 60+ Years (1 - 1-dose 75+ series) 2037 Hepatitis A Vaccines Aged Out No long er eligible based on patient's age to complete this topic Meningococcal B Vaccine Aged Out No l onger eligible based on patient's age to complete this topic Meningococcal Vaccine Aged Out No bharat adria eligible based on patient's age to complete this topic RSV Immunizations Under 20 Months Aged Out No longer eligible b ased on patient's age to complete this topic Insurance MEDICARE Care Teams Fishing Captain Relationship Specialty Start Date End Date Alber Chacko MD [address] [place] [phone] PCP - General FAMILY PRACTICE 11/04/23
== END 2025-08-08 10:01 | disposition home or self-care (01) ==
LOC: CHSLAB 10:02
PROVIDERS: PCP Family Medicine; Visit Provider Anesthesiology
DX: E11.9 Type 2 diabetes mellitus without complications (principal)
CPT/HCPCS: 36415; 80048

== ENCOUNTER 2025-08-10 02:34 | Day surgery (SDC) | payer MEDICARE, SELFPAY ==
[2025-08-07 14:00] VITALS: BMI 36.8
--- NOTE | 2025-08-07 14:07 | PC.NURSE ---
[facility] has started construction of its new state of the art ER which will open Spring 2026. With this, we anticipate parking may be a challenge for some our surgical patients and families. Parking spaces are limited but are available for all Surgical, obstetrics, and ER patients sharing this lot. If you arrive and find you are having a hard time finding a parking space, please note that we understand the challenges, please drive around the hospital and park near Hospital Entrance 1. When you enter this entrance, you can ask a volunteer to direct or take you back to the surgical waiting area to check in. We appreciate everyone?s understanding of these expected challenges while we build for your future. Report to the Outpatient Waiting Room, entrance under the green pavilion located off [address], at time _0815_ on date 08/10/25_. Planned Procedure Time: _1015_.? Time changes happen often and if your time is changed the preop area will call you the afternoon before. - You and your visitor will be asked to self-screen and do not enter if you have any COVID symptoms. Please call surgeon if you need to reschedule. - A mask is optional within the hospital at this time. Patients may have clear liquids (water, carbonated beverages, clear teas, apple juice) until 3 hours prior to surgery with a maximum of 20 ounces. - No food from midnight until time of surgery and no smoking, or chewing tobacco (or any form of nicotine). No chewing gum, candy or mints. . Take only the following medications with a SIP of water on the morning of surgery: NONE DO NOT STOP ANY OF YOUR OTHER PRESCRIPTION MEDICATIONS PRIOR TO SURGERY EXCEPT THE FOLLOWING Hold all vitamins and supplements for 3 days per anesthesiologist. Medications to discontinue per physician Date to take last dose Please no make-up, nail congolese, hairspray, perfume, deodorant, or body powder the day of surgery.? No jewelry (including any body piercings) or valuables the day of surgery, leave them at home.? Please take a shower or bath the night before, or the morning of, surgery with an antibacterial soap.? Wear comfortable, loose fitting clothing.? Children are encouraged to wear pajamas. - Jewelry must be removed prior to entering the operating room.? Rings and piercings that are not removed may be cut off. - The hospital will not accept responsibility for valuables.? - Please leave all valuables, including medications, at home the day of surgery. If you are going home after surgery, a licensed car pick up driver must drive you home.? - NO public transportation without another adult if you receive anesthesia. - We recommend that an adult stay with you for 24 hours following discharge. - We also recommend that you do not drive, make important decision, drink alcoholic beverages, or take any drugs that were not prescribed by your health care provider for at least 24 hours after your discharge time. For Pediatric surgeries, we recommend two adults accompany the child home. Follow any additional instructions given to you from your surgeon. Telephone instructions given to __PATIENT_and asked if any additional questions and then verbalized understanding. Patient advised to call surgeon office or pre surgery nurse liaison [phone] if any additional questions.
--- OUTSIDE RECORDS SUMMARY | 2025-08-10 02:40 | XMS_ITS | Clinical Summary ---
Author Organization [facility] Address [facility] [place] [address] Care Team Providers Care Farm Operator Name Role Phone Alber Chacko MD Primary Care Provider [phone] Social History Tobacco Use Types Packs/Day Years [...] complete this topic Insurance MEDICARE Care Teams Farm Operator Relationship Specialty Start Date End Date Alber Cahcko MD [address] [place] [phone] PCP - General FAMILY PRACTICE 11/04/23
--- NOTE | 2025-08-10 06:55 | WPDHPUPDATE1 ---
History and Physical Update Update Date/Time: 08/10/25 06:55 History and Physical has been reviewed, including an updated exam of the patient. There are NO changes in the patient's condition. Risks, benefits, and alternatives have been discussed and questions answered. Patient agrees to proceed with procedure.
--- NOTE | 2025-08-10 09:05 | WPDANESEPPF ---
Anes - Initial Pre Proc Eval Procedure: Operation Date: 08/10/25 10:15 Proposed Procedures p Cystoscopy with Possible Transurethral Resection Bladder Tumor - Gurjit Stein MD Date/Time: 08/10/25 09:05 Surgeon: Gurjit Stein MD Pre Op Diagnosis: hx of bladder cancer, gross hematuria Patient Data Age: 65 Gender: M Height: 1.88 m Weight: 130 kg Allergies Allergy/AdvReac Type Severity Reaction Status Date / Time No Known Allergies Allergy Verified 08/07/25 13:58 Home Medications ?Medication ?Instructions ?Recorded ?Confirmed ?Type amitriptyline 100 mg tablet 100 mg PO HS 12/09/23 08/07/25 History clonidine HCl 0.2 mg tablet 0.2 mg PO HS 12/09/23 08/07/25 History trazodone 50 mg tablet 100 mg PO HS 12/09/23 08/07/25 History atorvastatin 20 mg tablet 20 mg PO QAM 07/05/24 08/07/25 History glipizide 5 mg tablet, extended 5 mg PO DAILY 01/03/25 08/07/25 History release 24 hr semaglutide 0.25 mg or 0.5 mg (2 0.25 mg subcut WEEKLY 08/07/25 08/07/25 History mg/3 mL) subcutaneous pen injector (Ozempic) Laboratory Tests 08/10/25 08:28 POC Capillary Glucose 149 H mg/dl (65-105) Patient hx anesthesia problems: none Family hx anesthesia problems: none Results Review: All pre-operative results and documents have been reviewed as part of the pre-operative evaluation. [facility] Past Medical History Medical History (Updated 08/10/25 @ 09:05 by Felipe Matos MD) Bladder tumor Diabetes Hyperlipemia Social History Social History Smoking packs per day: 1 Smoking cigarettes per day: 20.0 Years smoked: 20 Smoking pack-years: 20.00 Smoking status: Former smoker Tobacco type: cigarettes Second hand tobacco smoke exposure: No Smoking end date: 10/04/14 Additional smoking assessment comments: QUIT 2014 Alcohol intake: former Substance use: current Substance use type: marijuana Other substance usage details: 3 TIMES PER WEEK Lack of Transportation: No Lack of Food: Never True Current Housing: I Have Housing Concerned About Future Housing: No Difficulty Paying Gas/Electric Bills: No Difficulty Paying for Meds: No Currently Unemployed: No Education: Trade/Vocational Certificate Difficulty w/ Childcare or Family Care: No Living arrangements: with family Additional living arrangements comments: Spiritual care concerns: No Anes - Eval Final PreProcedure Day of Procedure 08/10/25 09:05 Patient weight: obese Heart: regular rate and rhythm Lungs: clear to auscultation Airway: Mallampati scale class II Neurological: alert and oriented Last oral intake: >/= 8 hours ASA classification: III Emergent: no Anesthetic plan: proceed Anesthesia type and monitoring: general LMA Results Review: All pre-operative results and documents have been reviewed as part of the pre-operative evaluation. Informed Consent: The patient's anesthetic plan and its attendant risks and benefits were discussed with the patient/family/POA. Questions were solicited and answers provided to the satisfaction of the patient/family/POA.
[2025-08-10 09:15] VITALS: BP 137/76; PULSE 74; RESP 16; TEMP 36.4; O2SAT 100; BMI 37.0
[2025-08-10] MEDS: LACTATED RINGERS 1,000 ML 30 ML IV CONT (09:15)
[2025-08-10] MEDS: ceFAZolin 3 GM/D5W 100 ML 100 ML IVPB (10:02)
[2025-08-10] MEDS: LIDOCAINE 2% GEL UROJET 10 ML PKG MUCOUS MEM (10:14)
--- NOTE | 2025-08-10 10:24 | W.PM.PROC2 ---
Procedure Note - Detailed Date of Procedure 08/10/25 Pre-op Diagnosis hx of bladder cancer Post-op Diagnosis Same Procedure Performed Flexible cystoscopy Surgeon Gurjit Stein MD Anesthesia MAC Findings No recurrent bladder tumor. Minimal BPH Description of Procedure Patient is brought the operative suite where he was prepped draped in routine sterile fashion while in dorsal lithotomy position. 2% xylocaine jelly was introduced intraurethrally and systemic sedation is administered per the anesthesia department. Cystoscopy was undertaken with a 16 F flexible cystoscope. There was no urethral stricture. There is mild lateral lobe hyperplasia of the prostate with approximately a 1.5 cm prostatic urethra. There was no median lobe enlargement. The bladder mucosa is normal without hyperemia. There is no intravesical foreign body or neoplasm. Does have mild trabeculation of the bladder but, again, no evidence of recurrent neoplasm. Cystoscope was removed and he was taken recovery room good condition. Flexible cystoscopy in the OR showed no evidence of recurrent bladder tumor. I think we will do this once again in 6 months and then perhaps annually schedule again for mid January 2026
[2025-08-10 10:25] VITALS: BP 126/68; PULSE 77; RESP 15; O2SAT 96
[2025-08-10 10:55] VITALS: BP 129/65; PULSE 68; RESP 16; O2SAT 98
[2025-08-10 11:25] VITALS: BP 132/68; PULSE 69; RESP 16
== END 2025-08-10 11:41 | disposition home or self-care (01) ==
PROVIDERS: PCP Family Medicine; Visit Provider Urology
PROC: 0TBB8ZZ Excision of Bladder, Via Natural or Artificial Opening Endoscopic (ICD-10-PCS; CPT 52000; principal; 2025-08-10 10:15)
DX: Z08 Encounter for follow-up examination after completed treatment for malignant neoplasm (principal); Z85.51 Personal history of malignant neoplasm of bladder; N40.0 Benign prostatic hyperplasia without lower urinary tract symptoms; E11.9 Type 2 diabetes mellitus without complications; Z87.891 Personal history of nicotine dependence; F12.90 Cannabis use, unspecified, uncomplicated; E66.9 Obesity, unspecified; Z68.37 Body mass index [BMI] 37.0-37.9, adult
CPT/HCPCS: 52000; 82948; J0690; J2250; J2704; J7120